=== PATIENT | female | born 1995 | race Caucasian/White ===

== ENCOUNTER 2020-03-19 18:19 | Emergency (ER) | payer SELFPAY ==
[2020-03-19 18:29] VITALS: BP 143/83; PULSE 88; RESP 16; TEMP 37.1; O2SAT 98; BMI 47.2
[2020-03-19 19:58] LABS: Basophils # 0.1 10^3/uL (0.0-0.1); Basophils % 0.4 %; Eosinophils # 0.2 10^3/uL (0.0-0.8); Eosinophils % 1.3 %; Hematocrit 41.7 % (37.0-47.0); Hemoglobin 12.7 g/dL (11.5-15.3); Lymphocytes # 3.1 10^3/uL (0.8-4.8); Lymphocytes % 24.6 %; Mean Corpuscular HGB Conc 30.5 g/dL (30.0-36.0); Mean Corpuscular Volume 81.9 fL (81-99); Mean Platelet Volume 9.7 fL (7.4-10.4); Monocytes # 0.9 10^3/uL (0.2-0.9); Monocytes % 6.8 %; Neutrophils # 8.46 10^3/uL (1.8-7.7); Neutrophils % 66.5 %; Nucleated Red Blood Cells % 0 %; Platelet Count 350 10^3/cmm (130-400); Red Blood Count 5.09 10^6/uL (4.1-5.3); Red Cell Distribution Width 15.2 % (12.1-15.1); White Blood Count 12.7 10^3/uL (4.0-10.0)
[2020-03-19 20:16] LABS: Alanine Aminotransferase 21 U/L (0-33); Albumin Level 4.3 g/dL (3.5-5.2); Alkaline Phosphatase 72 IU/L (35-105); Anion Gap 13.9 (5-19); Aspartate Amino Transferase 16 U/L (0-32); Blood Urea Nitrogen 16 mg/dL (6-20); Calcium 9.3 mg/dL (8.5-10.5); Carbon Dioxide 25 mmol/L (22-29); Chloride 103 mmol/L (98-107); Globulin 2.9 g/dL (1.3-4.6); Glomerular Filtration Rate 89.7 mL/min (90-130); Glucose 86 mg/dL (65-115); Osmolality Calculated 282 mOsm/kg (285-295); Potassium 3.9 mmol/L (3.5-5.1); Sodium 138 mmol/L (136-145); Total Bilirubin 0.2 mg/dL (0.15-1.2); Total Protein 7.2 g/dL (6.6-8.7)
--- NOTE | 2020-03-19 20:39 | US_ITS ---
WS: [id number] ULTRASOUND ABDOMEN LIMITED CLINICAL INFORMATION: Abdominal Pain COMPARISON: None. FINDINGS: Liver Size: Enlarged Craniocaudal length: 16.1 cm. Echogenicity: Coarse fatty Surface nodularity: None. Mass (size and location): None. Bile ducts Intrahepatic ducts: Normal. Common bile duct diameter: 0.5 cm. Gallbladder Normal. Gallstones: None. Gallbladder sludge: None. Gallbladder wall thickening: None. Pericholecystic fluid: None. Sonographic Cline sign: Absent. Pancreas Normal as visualized. Right kidney: Normal. Hydronephrosis: None. Size: 10.5 cm x 4.0 cm x 3.6 cm. Abdominal aorta and IVC Visualized portions are normal. Ascites: None. US/US gall bladder [id number] IMPRESSION: 1. Hepatomegaly with diffuse fatty infiltration. 2. Abdomen otherwise normal.
[2020-03-19 20:41] LABS: HCG, Serum Qual Negative (Negative)
[2020-03-19 21:28] LABS: H. Pylori IgG Antibody Negative (Negative)
--- NOTE | 2020-03-19 21:28 | ED_ITS ---
HPI - Abdominal Pain General: Chief Complaint: Abdominal Pain Stated Complaint: abd pain Time Seen by Provider: 03/19/20 20:20 Source: patient Mode of arrival: ambulatory Limitations: no limitations History of Present Illness: HPI narrative: Netta is a very nice 24-year-old female who comes in complaining of lower abdominal pain for the past 2 months. She denies any vaginal bleeding or discharge, but she does states she is late 2 months for her period. She has had 2- home test but is uncertain why she has not had a menstrual cycle. She denies any aggravating or alleviating factors. Denies having anything similar in the past. She states the pain is constant from the time she wakes up until the time she goes to bed. She has not had this evaluated as an outpatient and she only comes in tonight secondary to the insistence of her grandmother. She denies any nausea or vomiting, diarrhea or constipation, dysuria but does state that she has had urinary frequency and urgency. She is unaware of any hematuria. Patient denies any other complaints or concerns. Associated Symptoms: Denies chills, coffee ground emesis, constipation, GI cramping, diarrhea, dysuria, fever(s), heartburn, hematochezia, hematuria, hematemesis, melena, nausea, syncope and vomiting Review of Systems Const: Denies: fever(s), chills, body aches, fatigue, malaise or diaphoresis Eyes: Denies: change in vision, blurry vision, blind spots, photophobia, eye discharge or eye redness ENMT: Denies: throat pain, odynophagia, hoarseness, swelling of lips/tongue, oral sores, ear or mastoid pain, ear discharge, change in hearing or nasal discharge Card: Denies: chest pain, palpitations, irregular heart rhythm, edema, lightheadedness, syncope, pre-syncope, dyspnea on exertion or orthopnea Resp: Denies: dyspnea, productive cough, non-productive cough, wheezing, hemoptysis or chest congestion GI: Reports: abdominal pain; Denies: nausea, vomiting, hematemesis, coffee ground emesis, heartburn, diarrhea, constipation, GI cramping, hematochezia or melena : Denies: flank pain, dysuria, urinary frequency, urinary urgency or hematuria Musc: Denies: neck pain, back pain, extremity pain, extremity swelling, joint pain, joint swelling, joint redness, joint warmth or joint stiffness Skin/Breast: Denies: rash, pruritus, erythema, skin tenderness or jaundice Neuro: Denies: headache(s), numbness in extremities, weakness in extremities, sensory changes, lack of coordination, difficulty walking, dizziness, vertigo, confusion, Slurred speech present or seizure-like activity Issa/Lymph: Denies: easy bruising, easy bleeding, petechiae, purpura or en larged lymph nodes All/Imm: Denies: urticaria, throat swelling, tongue swelling, facial swelling or acute wheezing PFSH ED PFSH: Medical History No pertinent past medical history Surgical History No pertinent past surgical history Social History Smoking and tobacco status: never smoked Alcohol intake: never Substance/Drug Use: never Physical Exam Const: COMMON NORMALS: no acute distress, patient oriented x3, no limitations, healthy appearing and well nourished GENERAL APPEARANCE: cooperative, well kempt and well developed HENMT: COMMON NORMALS: normocephalic, atraumatic, external ears normal, EAC's normal and Normal external nose present HEAD & SCALP: normal to inspection, normocephalic and atraumatic FACE & SINUS: normal facial exam and face symmetric NOSE: Normal external nose present and Normal nares present EXTERNAL EAR: Yes external ears normal EXTERNAL AUDITORY CANAL: EAC's normal MOUTH: Normal oral and palatal mucosa present, lip normal and tongue normal Eye: COMMON NORMALS: Equal, round and reactive pupils present and conjunctivae normal GENERAL EYE: appearance normal, both eyes and all related structures ALIGNMENT: Yes alignment normal PERIORBITAL: periorbital findings normal EYELID: eyelids normal CONJUNCTIVA: Yes conjunctivae normal SCLERA: sclerae normal PUPIL: Yes Equal, round and reactive pupils present Neck/C-Spine: COMMON NORMALS: full ROM, no lymphadenopathy, supple, no meningeal signs and no JVD GENERAL: Yes normal visual inspection and Yes trachea midline Chest: COMMONS NORMALS: normal inspection of the chest and normal palpation of entire chest wall Resp: COMMON NORMALS: normal respiratory effort, No retractions and No use of accessory muscles EFFORT & INSPECTION: Yes able to speak in complete sentences and Yes symmetric chest movement AUSCULTATION: no crackles, no rales, no rhonchi and no wheezes Cardio: COMMON NORMALS: no JVD, regular rate, regular rhythm, S1 normal heart sound present and S2 normal heart sound present RATE: regular rate RHYTHM: regular rhythm HEART SOUNDS: S1 normal heart sound present, S2 normal heart sound present, no click, no gallops, no murmurs, no rubs and abnormal split S2 GI: COMMON NORMALS: Soft to palpation and No hepatosplenomegaly present PALPATION: Yes Soft to palpation, Yes Tenderness to palpation present (GI) Details: RUQ, No Guarding due to palpation present (GI), No Rigid due to palpation, Yes No hepatosplenomegaly present, No Hernia present, No Palpable mass present and No Pulsatile mass present : COMMON NORMALS: Yes no CVA tenderness BLADDER/KIDNEY EXAM: Yes no CVA tenderness EXTERNAL FEMALE EXAM: No Hernia present Back/Pelvis: COMMON NORMALS: no CVA tenderness, thoracic and lumbar spine normal to inspection, no thoracic nor lumbar tenderness and thoraco-lumbar ROM normal Extremity: COMMON NORMALS: normal to inspection, full ROM, capillary refill normal, no joint enlargement, no clubbing, cyanosis or edema and no calf tenderness Neuro: COMMON NORMALS: patient oriented x3, CN's II-XII intact bilaterally, moves all extremities, no focal motor deficits and no sensory deficits noted MENINGEAL SIGNS: Yes no meningeal signs SPEECH: speech normal Psych: COMMON NORMALS: mental status grossly normal, Normal thought process present, cooperative, normal affect, speech normal and activity/motor behavior normal APPEARANCE: Yes well kempt SPEECH: Yes normal speech THOUGHT PROCESS: Normal thought process present Skin: COMMON NORMALS: no rashes or lesions noted, turgor normal, no jaundice, no petechiae and no mottling GENERAL SKIN EXAM: no rashes or lesions noted an d turgor normal Course Vital Signs: Vital signs: Vital Signs Temperature 98.8 F 03/19/20 18:29 Pulse Rate 88 03/19/20 18:29 Respiratory Rate 16 03/19/20 23:20 Blood Pressure 167/120 03/19/20 23:24 Pulse Oximetry 97 03/19/20 21:29 MDM - Abdominal Pain MDM Narrative: Medical decision making narrative: Netta is a nice 24-year-old female who comes in complaining of 2 months of constant lower abdominal pain. What prompted her to come in tonight was insistent by her family. She appears that she has a mild UTI but I see no sign of acute peritonitis on exam. Her abdominal ultrasound is unremarkable. I recommended a CT scan to evaluate further including to rule out appendicitis although I did not feel this was likely based upon exam and history but despite this I recommended this to the patient and she refuses. She does agree to follow-up Dr. Mcneal as an outpatient for possible colonoscopy and EGD. She understood the risks of appendicitis and agreed to return if her symptoms worsened. Lab Data: Attestation: I reviewed the patient's lab results. Labs: Lab Results 03/19/20 03/19/20 03/19/20 Range/Units 19:44 19:44 19:44 WBC 12.7 H (4.0-10.0) 10^3/ uL RBC 5.09 (4.1-5.3) 10^6/u L Hgb 12.7 (11.5-15.3) g/dL Hct 41.7 (37.0-47.0) % MCV 81.9 (81-99) fL MCH 25.0 L (28.0-34.0) pg MCHC 30.5 (30.0-36.0) g/dL RDW 15.2 H (12.1-15.1) % Plt Count 350 (130-400) 10^3/c mm MPV 9.7 (7.4-10.4) fL Neut % (Auto) 66.5 % Lymph % (Auto) 24.6 % [place] % (Auto) 6.8 % Eos % (Auto) 1.3 % Baso % (Auto) 0.4 % Neut # (Auto) 8.46 H (1.8-7.7) 10^3/u L Lymph # (Auto) 3.1 (0.8-4.8) 10^3/u L [place] # (Auto) 0.9 (0.2-0.9) 10^3/u L Eos # (Auto) 0.2 (0.0-0.8) 10^3/u L Baso # (Auto) 0.1 (0.0-0.1) 10^3/u L Nucleated RBC % (a uto) 0 % Nucleated RBCs # 0.0 /100WBC Sodium 138 (136-145) mmol/L Potassium 3.9 (3.5-5.1) mmol/L Chloride 103 (98-107) mmol/L Carbon Dioxide 25 (22-29) mmol/L Anion Gap 13.9 (5-19) BUN 16 (6-20) mg/dL Creatinine 0.8 (0.5-0.9) mg/dL GFR Calculation 89.7 L (90-130) mL/min Glucose 86 (65-115) mg/dL Calculated Osmolal ity 282 L (285-295) mOsm/k g Calcium 9.3 (8.5-10.5) mg/dL Total Bilirubin 0.2 (0.15-1.2) mg/dL AST 16 (0-32) U/L ALT 21 (0-33) U/L Alkaline Phosphata se 72 (35-105) IU/L Total Protein 7.2 (6.6-8.7) g/dL Albumin 4.3 (3.5-5.2) g/dL Globulin 2.9 (1.3-4.6) g/dL HCG, Qual Negative (Negative) Urine Color (Yellow) Urine Appearance (CLEAR) Urine pH (5-7) Ur Specific Gravit y (1.005-1.030) Urine Protein (Negative) Urine Glucose (UA) (Normal) Urine Ketones (Negative) Urine Blood (Negative) Urine Nitrate (Negative) Urine Bilirubin (NEGATIVE) Urine Urobilinogen (Negative) mg/dL Ur Leukocyte Natalee ase (Negative) Urine RBC (0-2) /hpf Urine WBC (0-5) /hpf Ur Squamous Epith Cells (0-5) Amorphous Sediment Urine Bacteria (NONE) H. pylori IgG Anti body (Negative) 03/19/20 03/19/20 Range/Units 19:44 21:20 WBC (4.0-10.0) 10^3/ uL RBC (4.1-5.3) 10^6/u L Hgb (11.5-15.3) g/dL Hct (37.0-47.0) % MCV (81-99) fL MCH (28.0-34.0) pg MCHC (30.0-36.0) g/dL RDW (12.1-15.1) % Plt Count (130-400) 10^3/c mm MPV (7.4-10.4) fL Neut % (Auto) % Lymph % (Auto) % [place] % (Auto) % Eos % (Auto) % Baso % (Auto) % Neut # (Auto) (1.8-7.7) 10^3/u L Lymph # (Auto) (0.8-4.8) 10^3/u L [place] # (Auto) (0.2-0.9) 10^3/u L Eos # (Auto) (0.0-0.8) 10^3/u L Baso # (Auto) (0.0-0.1) 10^3/u L Nucleated RBC % (a uto) % Nucleated RBCs # /100WBC Sodium (136-145) mmol/L Potassium (3.5-5.1) mmol/L Chloride (98-107) mmol/L Carbon Dioxide (22-29) mmol/L Anion Gap (5-19) BUN (6-20) mg/dL Creatinine (0.5-0.9) mg/dL GFR Calculation (90-130) mL/min Glucose (65-115) mg/dL Calculated Osmolal ity (285-295) mOsm/k g Calcium (8.5-10.5) mg/dL Total Bilirubin (0.15-1.2) mg/dL AST (0-32) U/L ALT (0-33) U/L Alkaline Phosphata se (35-105) IU/L Total Protein (6.6-8.7) g/dL Albumin (3.5-5.2) g/dL Globulin (1.3-4.6) g/dL HCG, Qual (Negative) Urine Color Yellow (Yellow) Urine Appearance Hazy A (CLEAR) Urine pH 5 (5-7) Ur Specific Gravit y 1.025 (1.005-1.030) Urine Protein Neg (Negative) Urine Glucose (UA) Norm (Normal) Urine Ketones Negative (Negative) Urine Blood 2+ H (Negative) Urine Nitrate Negative (Negative) Urine Bilirubin Neg (NEGATIVE) Urine Urobilinogen Norm (Negative) mg/dL Ur Leukocyte Natalee ase 1+ H (Negative) Urine RBC 0-4 H (0-2) /hpf Urine WBC 0-4 H (0-5) /hpf Ur Squamous Epith Cells 0-4 H (0-5) Amorphous Sediment Not Reportable Urine Bacteria Trace (NONE) H. pylori IgG Anti body Negative (Negative) Imaging Data ^: US: My impression: Ultrasound abdomen, technologist interpretation -no acute findings. See formal report. Discharge Plan Discharge Patient Disposition: Home, Self-Care Clinical Impression: Abdominal pain Qualifiers: Abdominal location: generalized Qualified Code(s): R10.84 - Generalized abdominal pain UTI (urinary tract infection) Qualifiers: Urinary tract infection type: acute cystitis Hematuria presence: without hematuria Qualified Code(s): N30.00 - Acute cystitis without hematuria Condition: Stable Prescriptions: New Pyridium 200 mg tablet 200 mg PO TID PRN (Reason: pain) Qty: 7 RF: 0 cefdinir 300 mg capsule 300 mg PO Q12H 10 Days Qty: 20 RF: 0 Discharge Orders: Discharge Order (Routine); Ordered 03/19/20 Ordered By: Velvet Miller Referrals: Tung De León MD [Primary Care Provider] - Bob Mcneal MD [Physician] - Discharge Diet: Advance as tolerated Discharge Activity: Increase activity as tolerated Patient Instructions: Cholecystitis (ED), Abdominal Pain (ED) Activity Restrictions/Additional Instructions: Please return to the ER immediately for any of the signs or symptoms listed on your discharge instruction sheets, worsening/changing of your symptoms, you are not getting better as quickly as expected, or for ANY other cause or concerns. I have recommended and offered to perform a CT scan to further evaluate your abdominal pain including to rule out appendicitis but you have refused. If you change your mind or your symptoms change/worsen in any way please return to the ER immediately for recheck. 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
[2020-03-19 21:29] VITALS: BP 131/107; RESP 18; O2SAT 97
[2020-03-19 22:04] LABS: Add Urine Microscopic? YES; Bilirubin Urine Neg (NEGATIVE); Blood Urine 2+ (Negative); Glucose Urine UA Norm (Normal); Ketones Urine Negative (Negative); Leukocyte Esterase Urine 1+ (Negative); Nitrate Urine Negative (Negative); Protein Urine Neg (Negative); Specific Gravity, Urine 1.025 (1.005-1.030); Urine Appearance Hazy (CLEAR); Urine Color Yellow (Yellow); Urobilinogen Urine Norm (Negative); pH Urine 5 (5-7)
[2020-03-19 22:06] LABS: Add Urine Culture? No; Bacteria Urine TRACE; RBC Urine 0-4 /hpf (0-2); Squamous Epithelial Cell Urine 0-4 (0-5); WBC Urine 0-4 /hpf (0-5)
[2020-03-19 23:20] VITALS: RESP 16
[2020-03-19 23:24] VITALS: BP 167/120
== END 2020-03-19 23:29 | disposition home or self-care (01) ==
PROVIDERS: Emergency Medicine; Emergency Provider Emergency Medicine; PCP Obstetrics & Gynecology
DX: N30.00 Acute cystitis without hematuria (principal)
CPT/HCPCS: 12345; 36415; 76705; 80053; 81001; 81003; 84703; 85025; 86677; 99282; 99283

== ENCOUNTER 2021-02-16 18:08 | Emergency (ER) | payer SELFPAY ==
[2021-02-16 18:44] VITALS: BP 137/83; PULSE 73; RESP 18; TEMP 37; O2SAT 96; BMI 50.8
--- NOTE | 2021-02-16 19:07 | W.ED.URI ---
HPI - URI/Sore Throat General: Chief Complaint: Upper Respiratory Infection Stated Complaint: congestion, feels like throat swelling Time Seen by Provider: 02/16/21 19:07 History of Present Illness: HPI Narrative: 25-year-old female comes in today for complaints of cough and congestion for about 1 week now. Patient reports last 2 days has been worse. Patient reports though she has not had a fever for about 2 days. Patient appears mildly unwell but not toxic. Respirations are even. Patient appears with no pain. Review of Systems General: Reports: 10 or more systems reviewed and unremarkable except in HPI and below Resp: Reports: non-productive cough and wheezing [facility] ED PFSH: Medical History (Updated 02/16/21 @ 19:15 by ELI Hernandez) No pertinent past medical history Surgical History No pertinent past surgical history Social History Smoking and tobacco status: never smoked Alcohol intake: never Female Reproductive History: Date of last menstrual period: 02/09/21 Physical Exam Const: COMMON NORMALS: no acute distress and patient oriented x3 GENERAL APPEARANCE: cooperative HENMT: COMMON NORMALS: normocephalic and TM's normal bilaterally HEAD & SCALP: normal to inspection and normocephalic NOSE: Nasal discharge present TYMPANIC MEMBRANE: TM's normal bilaterally and other (Scarring to both tympanic membranes) MOUTH: Normal oral and palatal mucosa present THROAT: posterior oropharynx normal Eye: GENERAL EYE: appearance normal, both eyes and all related structures Neck/C-Spine: COMMON NORMALS: full ROM Lymph: LYMPHATIC: no lymphadenopathy noted Chest: COMMONS NORMALS: normal inspection of the chest Resp: COMMON NORMALS: normal respiratory effort EFFORT & INSPECTION: Yes able to speak in complete sentences AUSCULTATION: wheezes (Mild) Cardio: COMMON NORMALS: regular rate and regular rhythm RATE: regular rate RHYTHM: regular rhythm GI: COMMON NORMALS: non-tender : COMMON NORMALS: Yes no CVA tenderness BLADDER/KIDNEY EXAM: Yes no CVA tenderness Back/Pelvis: COMMON NORMALS: no CVA tenderness and thoracic and lumbar spine normal to inspection Extremity: COMMON NORMALS: normal to inspection Neuro: COMMON NORMALS: patient oriented x3 and moves all extremities Psych: COMMON NORMALS: mental status grossly normal and cooperative Skin: COMMON NORMALS: no rashes or lesions noted GENERAL SKIN EXAM: no rashes or lesions noted Course Vital Signs: Vital signs: Vital Signs Temperature 98.6 F 02/16/21 18:44 Pulse Rate 73 02/16/21 18:44 Respiratory Rate 18 02/16/21 18:44 Blood Pressure 137/83 02/16/21 18:44 Pulse Oximetry 96 02/16/21 18:44 MDM - URI/Sore Throat MDM Narrative: Medical decision making narrative: Patient comes in today for complaints of cough and congestion for 7 days. Patient reports worsening symptoms over the last 2 days. Exam notes some wheezing in lung eduardo. Posterior pharynx has some drainage. Bilateral nares has congestion and drainage. Differential diagnosis includes not limited to acute bronchitis, upper respiratory infection, viral syndrome. Reviewed exam with patient recommended treat for bronchitis. We will give her a burst of dexamethasone 6 mg 1 tablet twice a day for 4 doses. Albuterol as needed for cough, wheezing, shortness of breath. And doxycycline 100 mg twice a day for 7 days. Patient reports understanding of care plan and need for follow-up or return to the ER. Discharge Plan Discharge Patient Disposition: Home Clinical Impression: Bronchitis Condition: Stable Prescriptions: New dexamethasone 6 mg tablet 6 mg PO BID Qty: 4 RF: 0 albuterol sulfate 90 mcg/actuation HFA aerosol inhaler 2 puff inhalation Q4H PRN (Reason: shortness of breath or wheezing or cough) Qty: 8.5 RF: 0 doxycycline monohydrate 100 mg capsule 100 mg PO BID 7 Days Qty: 14 RF: 0 No Action Pyridium 200 mg tablet 200 mg PO TID PRN (Reason: pain) Qty: 7 RF: 0 Discharge Orders: Discharge ED (Routine); Ordered 02/16/21 Ordered By: Leo Meyer Referrals: Tung De León MD [Primary Care Provider] - Discharge Diet: Usual diet Discharge Activity: Increase activity as tolerated Patient Instructions: Acute Bronchitis (ED), Opioid Safety Activity Restrictions/Additional Instructions: Take medication as directed. Drink plenty of fluids. Take antibiotic twice a day for next 7 days. Use albuterol 2 puffs every 4 hours as needed at least 4 times a day for the next 3 days. Use acetaminophen and ibuprofen for pain. Follow-up with primary care for recheck. Return to the ER for worsening symptoms or new concerns. Coding Level of Care Code ED Corrections Nurse for Ashley Mooney
== END 2021-02-16 19:32 | disposition home or self-care (01) ==
PROVIDERS: Emergency Provider Nurse Practitioner Family; PCP Obstetrics & Gynecology
DX: J40 Bronchitis, not specified as acute or chronic (principal)
CPT/HCPCS: 99281

== ENCOUNTER 2021-07-28 11:26 | Emergency (ER) | payer MEDICAID, SELFPAY ==
[2021-07-28 11:39] VITALS: BP 136/85; PULSE 81; RESP 16; TEMP 36.6; O2SAT 96; BMI 47.2
[2021-07-28 11:46] VITALS: BP 140/86; PULSE 85; RESP 18; TEMP 37.2; O2SAT 97
--- NOTE | 2021-07-28 12:11 | W.ED.URI ---
HPI - URI/Sore Throat General: Chief Complaint: Upper Respiratory Infection Stated Complaint: CONGESTION, SORE THROAT, N/V Time Seen by Provider: 07/28/21 11:57 Source: patient Mode of arrival: ambulatory Limitations: no limitations History of Present Illness: HPI Narrative: Patient is a 25-year-old female who presents to ED today with complaints of a sore throat, rhinorrhea, nasal congestion with yellow phelgm, ear fullness/pain, and cough with post-tussive vomiting. Patient has had symptoms for approximately 2 days. She has not been running fevers. Patient states her most bothersome symptom seems to be her sore throat. She is able to control her own secretions. No difficulty breathing. Patient states she is able to eat and drink. She states sometimes after eating she will begin coughing and then have an episode of posttussive vomiting. No sick contacts. Patient has received one dose of the COVID vaccination approximately a week ago. Associated symptoms: Reports ear or mastoid pain, nasal congestion and sinus pain; Deny abdominal pain, chills, chest pain, diarrhea, epistaxis, fever(s), headache(s), nausea or vomiting Review of Systems Const: Denies: fever(s), chills, body aches, fatigue or malaise Eyes: Denies: change in vision, blurry vision, photophobia, floaters or seeing flashes ENMT: Reports: throat pain, odynophagia, ear or mastoid pain, nasal discharge, nasal congestion and sinus pain; Denies: mouth pain, oral sores, dental pain, ear discharge, change in hearing, tinnitus, disequilibrium or epistaxis Card: Denies: chest pain, palpitations, swelling of feet/ankles or orthopnea Resp: Reports: productive cough, change in phlegm color and chest congestion; Denies: dyspnea, wheezing or hemoptysis GI: Denies: abdominal pain, nausea, vomiting or diarrhea Musc: Denies: neck pain, back pain, extremity pain or joint pain Skin/Breast: Denies: rash Neuro: Denies: headache(s) PFS ED PFSH: Medical History (Updated 07/28/21 @ 13:47 by LAMBERT Mello) No pertinent past medical history Psychiatric care Surgical History No pertinent past surgical history Social History (Updated 06/22/21 @ 13:37 by Ramiro Ojeda LPN) Smoking and tobacco status: never smoked Second hand smoke exposure: No Alcohol intake: never Female Reproductive History: Date of last menstrual period: 02/09/21 Physical Exam Const: COMMON NORMALS: no acute distress, patient oriented x3, no limitations and alert GENERAL APPEARANCE: cooperative NUTRITIONAL APPEARANCE: obese morbidly obese ORIENTATION/CONSCIOUSNESS: Yes awake, Yes oriented to person, Yes oriented to place and Yes oriented to time HENMT: COMMON NORMALS: normocephalic, atraumatic, hearing grossly normal bilaterally, external ears normal, EAC's normal, TM's normal bilaterally, Normal external nose present, Normal nasal mucous membranes and turbinates present, moist oral mucous membranes, oropharynx normal and gingiva normal HEAD & SCALP: normal to inspection, normocephalic and atraumatic FACE & SINUS: sinus tenderness maxillary NOSE: Normal external nose present and Normal nasal mucous membranes and turbinates present EXTERNAL EAR: Yes external ears normal EXTERNAL AUDITORY CANAL: EAC's normal TYMPANIC MEMBRANE: TM's normal bilaterally MOUTH: Normal oral and palatal mucosa present, lip normal and tongue normal THROAT: posterior oropharynx normal, tonsils normal and uvula midline Eye: GENERAL EYE: appearance normal, both eyes and all related structures Neck/C-Spine: COMMON NORMALS: full ROM, no lymphadenopathy and no meningeal signs Resp: COMMON NORMALS: normal respiratory effort and clear to auscultation bilaterally AUSCULTATION: clear to auscultation bilaterally Cardio: COMMON NORMALS: regular rate and regular rhythm RATE: regular rate RHYTHM: regular rhythm Neuro: COMMON NORMALS: patient oriented x3 SENSORIUM/ORIENTATION: Yes alert, Yes oriented to person, Yes oriented to place and Yes oriented to time MENINGEAL SIGNS: Yes no meningeal signs Skin: COMMON NORMALS: no rashes or lesions noted GENERAL SKIN EXAM: no rashes or lesions noted Course Vital Signs: Vital signs: Vital Signs Temperature 98.6 F 07/28/21 13:59 Pulse Rate 72 07/28/21 13:59 Respiratory Rate 17 07/28/21 13:59 Blood Pressure 140/86 07/28/21 13:59 Pulse Oximetry 98 07/28/21 13:59 MDM - URI/Sore Throat MDM Narrative: Medical decision making narrative: Patient clinically appears in no acute distress. Her vital signs are perfect. Rapid COVID negative. CXR normal. At this time symptoms are most consistent with viral URI. Spoke about conservative and symptomatic treatment. She states her most bothersome symptom seems to be her sore throat. Will give viscous lidocaine that patient may gargle with to help relieve some discomfort. Return to ED precautions given. Lab Data: Labs: Lab Results 07/28/21 12:22 SARS-CoV-2 Ag (Rap id) Negative (Negative) Imaging Data^: CXR: Radiologist's impression: [address] [id number] ReportSigned Patient: Netta Alberts #: [id number]: 1995Acct#:[id number]/Sex: FADM Date: 07/28/21Loc: ERRoom/Bed:Attending Dr: Ordering Provider/Ordering MD: Nava Min Date of Service: 07/28/21 Procedure(s): XR chest 1V portable [id number] Accession Number(s): [id number] Report Number: [id number] PROCEDURE INFORMATION: Exam: XR Chest Exam date and time: 07/28/2021 12:11 PM Age: 25 years old Clinical indication: Cough and shortness of breath; Patient HX: Coughing and SOB 3 days; Additional info: Cough, congestion TECHNIQUE: Imaging protocol: XR of the chest. Views: 1 view. COMPARISON: No relevant prior studies available. FINDINGS: Lungs: Unremarkable. No consolidation. Pleural spaces: Unremarkable. No pleural effusion. No pneumothorax. Heart/Mediastinum: Unremarkable. No cardiomegaly. Bones/joints: Unremarkable. XR/XR chest 1V portable [id number] IMPRESSION: No acute findings. Radiation Dose CTDIVOL = (mGy): DLP = (mGy-cm) Dictated By:Arturo Wood By:Arturo Wood Date/Time:07/28/21 [id number]/ 1211 Discharge Plan Discharge Patient Disposition: Home Clinical Impression: Upper respiratory infection Qualifiers: URI type: unspecified viral URI Qualified Code(s): J06.9 - Acute upper respiratory infection, unspecified Condition: Stable Prescriptions: New Lidocaine Viscous 2 % solution 15 ml MUCOUS MEM QID Qty: 100 RF: 0 No Action citalopram [Celexa] 20 mg tablet 20 mg PO DAILY Qty: 30 RF: 2 trazodone 50 mg tablet 100 mg PO .HS PRN (Reason: insomnia) Qty: 60 RF: 2 albuterol sulfate 90 mcg/actuation HFA aerosol inhaler 2 puff inhalation Q4H PRN (Reason: shortness of breath or wheezing or cough) Qty: 8.5 RF: 0 Discharge Orders: Discharge ED (Routine); Ordered 07/28/21 Ordered By: Nava Min Patient Instructions: Upper Respiratory Infection (ED), Upper Respiratory Infection (DC) Activity Restrictions/Additional Instructions: As we discussed you may use the viscous lidocaine to help with throat discomfort. You need to return to the ED if you are unable to control your own saliva, inability to eat/drink, or trouble breathing. Please follow up with primary care in 3-5 days if symptoms are worsening. Coding Level of Care Code ED Patient Admitting Representative for Ashley Mooney
[2021-07-28 13:42] LABS: SARS Covid-2 Antigen Negative (Negative)
[2021-07-28 13:53] VITALS: BP 140/86; PULSE 72; RESP 17; TEMP 37; O2SAT 98
[2021-07-28 13:59] VITALS: BP 140/86; PULSE 72; RESP 17; TEMP 37; O2SAT 98
== END 2021-07-28 14:00 | disposition home or self-care (01) ==
PROVIDERS: Emergency Provider Physician Assistant; PCP Obstetrics & Gynecology
DX: J06.9 Acute upper respiratory infection, unspecified (principal)
CPT/HCPCS: 71045; 87426; 99283

== ENCOUNTER → 2021-07-31 11:53 | Outpatient (BNVA) | payer MEDICAID, SELFPAY | PROVIDERS: PCP Obstetrics & Gynecology; Visit Provider Registered Nurse Neonatal Intensive Care | DX: J02.9 Acute pharyngitis, unspecified (principal) | CPT/HCPCS: 87880 ==

== ENCOUNTER → 2021-08-18 12:44 | Outpatient (BNVA) | payer MEDICAID, SELFPAY | PROVIDERS: PCP Obstetrics & Gynecology; Visit Provider Nurse Practitioner Family | DX: R68.89 Other general symptoms and signs (principal); Z20.822 Contact with and (suspected) exposure to COVID-19 | CPT/HCPCS: 87400; 87635 ==

== ENCOUNTER 2021-09-26 13:12 | Emergency (ER) | payer OTHER, MEDICAID, SELFPAY ==
--- NOTE | 2021-09-26 13:55 | XRR_ITS ---
PROCEDURE INFORMATION: Exam: XR Chest Exam date and time: 09/26/2021 1:55 PM Age: 25 years old Clinical indication: Pain; Chest pressure; Patient HX: C/O weakness, chest discomfort; Additional info: Chest pain TECHNIQUE: Imaging protocol: XR of the chest. Views: 1 view. COMPARISON: CR XR chest 1V portable [id number] 07/28/2021 12:20 PM FINDINGS: Lungs: Right hilar to lower lobe atelectasis versus infiltrate. Pleural spaces: Unremarkable. No pleural effusion. No pneumothorax. Heart/Mediastinum: Cardiomegaly. Bones/joints: Unremarkable. XR/XR chest 1V portable [id number] IMPRESSION: 1. Cardiomegaly. 2. Right hilar to lower lobe atelectasis versus infiltrate.
[2021-09-26 14:53] VITALS: BP 147/89; PULSE 67; RESP 16; TEMP 36.9; O2SAT 98; BMI 47.2
[2021-09-26 17:36] LABS: HCG Qualitative Urine. Negative (Negative)
== END 2021-09-26 19:11 | disposition left against medical advice (07) ==
PROVIDERS: Emergency Medicine; Emergency Provider Family Medicine; PCP Obstetrics & Gynecology
DX: Z53.21 Procedure and treatment not carried out due to patient leaving prior to being seen by health care provider (principal)
CPT/HCPCS: 71045; 81025

== ENCOUNTER 2022-01-12 13:37 | Emergency (ER) | payer OTHER, MEDICAID, SELFPAY ==
[2022-01-12 13:46] VITALS: BP 147/88; PULSE 96; RESP 18; TEMP 36.9; O2SAT 99
--- NOTE | 2022-01-12 15:01 | XR_ITS ---
WS: [id number] LUMBAR SPINE: 3 VIEWS TECHNIQUE: AP, lateral and L5-S1 spot. HISTORY: back pain/injury COMPARISON: None available. Mild straightening of the normal lumbar lordosis. Posterior alignment is normal. Pedicles are all tiera ntified. No fracture. No loss of disc space or vertebral body height. SI joints are symmetric bilaterally. No soft tissue abnormalities. XR/XR lumbar spine 2-3V* [id number] IMPRESSION: Mild straightening of the normal lumbar lordosis. This may be positional or due to muscle spasm. Otherwise negative.
--- NOTE | 2022-01-12 15:02 | W.ED.BACK ---
HPI - Back Pain/Injury General: Chief Complaint: Back Pain/Injury Stated Complaint: Sever Back Pain Time Seen by Provider: 01/12/22 14:49 Source: patient Mode of arrival: ambulatory Limitations: no limitations History of Present Illness: Patient is a nice 26-year-old female presents to ED today with a complaint of lower back pain. Patient tells me approximately 2 days ago while rolling over in bed she felt like she strained something in her lower back. Patient states she has been having lower back discomfort since. She denies any radicular symptoms and states the pain does not seem to move down into her lower extremities. She is not having any paresthesia-like sensations. Patient is still able to ambulate. She denies urinary symptoms. MD elicited complaint: back pain Associated symptoms: Deny abdominal pain, chills, difficulty walking, dysuria, fatigue, fever(s) or hematuria Review of Systems Const: Denies: fever(s), chills, body aches, fatigue or malaise Card: Denies: chest pain Resp: Denies: dyspnea GI: Denies: abdominal pain : Denies: flank pain, dysuria or hematuria Musc: Reports: back pain; Denies: neck pain, extremity pain or joint pain Skin/Breast: Denies: rash Neuro: Denies: headache(s), numbness in extremities, weakness in extremities, sensory changes or difficulty walking [facility] ED PFSH: Medical History No pertinent past medical history Psychiatric care Psychiatric care Viral gastroenteritis Surgical History No pertinent past surgical history Social History Smoking and tobacco status: never smoked Second hand smoke exposure: No Alcohol intake: never Female Reproductive History: Date of last menstrual period: 02/09/21 Physical Exam Const: COMMON NORMALS: no acute distress, patient oriented x3, no limitations and alert GENERAL APPEARANCE: cooperative NUTRITIONAL APPEARANCE: obese morbidly obese ORIENTATION/CONSCIOUSNESS: Yes awake, Yes oriented to person, Yes oriented to place and Yes oriented to time HENMT: COMMON NORMALS: normocephalic and atraumatic HEAD & SCALP: normocephalic and atraumatic Resp: COMMON NORMALS: normal respiratory effort Cardio: COMMON NORMALS: regular rate and regular rhythm RATE: regular rate RHYTHM: regular rhythm GI: COMMON NORMALS: Normal to inspection, nondistended, normoactive bowel sounds present, Soft to palpation and non-tender PALPATION: Yes Soft to palpation : COMMON NORMALS: Yes no CVA tenderness BLADDER/KIDNEY EXAM: Yes no CVA tenderness Back/Pelvis: COMMON NORMALS: no CVA tenderness THORACIC SPINE/UPPER BACK: Yes normal to inspection, Yes thoracic ROM normal, No thoracic spinal tenderness, No paraspinal muscle tenderness and No paraspinal muscle spasm LUMBAR SPINE/LOWER BACK: Yes ROM limited, Yes pain with ROM, Yes lumbar spinal tenderness, Yes paraspinal muscle tenderness (across bilateral lower back) Lumbar paraspinal muscle tenderness: bilateral, No paraspinal muscle spasm, No mass present and Yes straight leg raise negative bilaterally PELVIS: Yes buttocks normal SACROILIAC JOINTS: Yes SI joints normal SACRUM: no tenderness COCCYX: no tenderness Extremity: COMMON NORMALS: normal to inspection, full ROM, capillary refill normal, no joint enlargement, no clubbing, cyanosis or edema, no calf tenderness and no pedal edema GENERAL: Yes normal exam except as noted Neuro: IKE COMA SCALE: document GCS findings [place] coma scale eye opening: Spontaneous Ike coma scale verbal response: Orientated Ike coma scale motor response: Obey commands Ike coma scale total score: 15 COMMON NORMALS: patient oriented x3, moves all extremities, no focal motor deficits, no sensory deficits noted and gait normal SENSORIUM/ORIENTATION: Yes alert, Yes oriented to person, Yes oriented to place and Yes oriented to time Skin: COMMON NORMALS: no rashes or lesions noted GENERAL SKIN EXAM: no rashes or lesions noted Course Vital Signs: Vital signs: Vital Signs Temperature 98.4 F 01/12/22 13:46 Pulse Rate 96 01/12/22 13:46 Respiratory Rate 18 01/12/22 13:46 Blood Pressure 147/88 01/12/22 13:46 Pulse Oximetry 99 01/12/22 13:46 MDM - Back Pain/Injury Medical Decision Making XRs negative. Patient feels much better after IM medications given here. I will treat her for musculoskeletal back strain and recommend she follow-up with primary care in approximately a week or so if she does not feel like symptoms are improving. Return to ED precautions verbally discussed with patient. Labs Radiology Impressions Lumbar Spine X-Ray 01/12/22 15:01 IMPRESSION: Mild straightening of the normal lumbar lordosis. This may be positional or due to muscle spasm. Otherwise negative. Discharge Plan Discharge Patient Disposition: Home Clinical Impression: Musculoskeletal back pain Condition: Stable Prescriptions: New cyclobenzaprine 10 mg tablet 10 mg PO TID Qty: 14 0RF ibuprofen 800 mg tablet 800 mg PO Q8H PRN (Reason: pain) Qty: 20 0RF Medrol (Paul) 4 mg tablets,dose pack See Rx Instructions .ROUTE .COMPLEX Qty: 21 0RF Rx Instructions: orally per package directions No Action fluoxetine [Prozac] 20 mg capsule 20 mg PO DAILY Qty: 30 2RF norgestimate-ethinyl estradiol [Tri-Sprintec (28)] 0.18/0.215/0.25 mg-35 mcg (28) tablet 1 tab PO DAILY 0RF trazodone 50 mg tablet 100 mg PO .HS PRN (Reason: insomnia) Qty: 60 0RF Discharge Orders: Discharge ED (Routine); Ordered 01/12/22 Ordered By: Nava Min Referrals: Tung De León MD [Primary Care Provider] - Patient Instructions: Low Back Strain (ED), Musculoskeletal Pain (ED) Coding Level of Care Code ED Maintenance Shop Technician for Ashley Mooney
[2022-01-12] MEDS: dexamethasone 10 mg/mL INJ 8 MG IM (15:31)
[2022-01-12] MEDS: orphenadrine 30 mg/mL Inj 2 mL 60 MG IM (15:32)
[2022-01-12] MEDS: ketorolac 60 mg/2 mL INJ IM (15:32)
--- NOTE | 2022-02-03 08:48 | DCPLANNER ---
strategic planning manager was unable to reach patient on several attempts to speak with patient about getting established with a primary care physician.
== END 2022-01-12 16:33 | disposition home or self-care (01) ==
PROVIDERS: Emergency Provider Physician Assistant; PCP Obstetrics & Gynecology
DX: M54.9 Dorsalgia, unspecified (principal)
CPT/HCPCS: 72100; 96372; 99283; J1100; J1885; J2360

== ENCOUNTER 2022-03-29 18:35 | Emergency (ER) | payer OTHER, MEDICAID, SELFPAY ==
[2022-03-29 18:44] VITALS: BP 132/78; PULSE 87; RESP 16; TEMP 37.1; O2SAT 98; BMI 41.5
--- NOTE | 2022-03-29 19:02 | ECG_ITS ---
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 Measurements Intervals [place] Rate: 62 P: 15 AL: 130 QRS: 19 QRSD: 92 T: 12 QT: 391 QTc: 400 Interpretive Statements SINUS RHYTHM No previous ECG available for comparison Electronically Signed On 03-30-2022 12:09:09 CDT by Ana Bean M.D. [id number]
--- NOTE | 2022-03-29 19:02 | XRR_ITS ---
PROCEDURE INFORMATION: Exam: XR Chest Exam date and time: 03/29/2022 7:35 PM Age: 26 years old Clinical indication: Chest wall pain; Additional info: Cp TECHNIQUE: Imaging protocol: Radiologic exam of the chest. Views: 1 view. COMPARISON: CR XR chest 1V portable [id number] 09/26/2021 4:41 PM FINDINGS: Lungs: No consolidation. Pleural spaces: No pleural effusion. No pneumothorax. Heart/Mediastinum: Mild cardiomegaly is noted. Bones/joints: Unremarkable. XR/XR chest 1V portable [id number] IMPRESSION: 1. Mild cardiomegaly is noted. 2. No acute abnormality demonstrated. 3. There is no interval change from the prior examination.
--- NOTE | 2022-03-29 21:10 | ED_ITS ---
HPI - Syncope General: Chief Complaint: Syncope Stated Complaint: Chest Pain/Dizzy Time Seen by Provider: 03/29/22 20:48 Source: patient Mode of arrival: ambulatory Limitations: no limitations History of Present Illness: 26-year-old female who states that she had some weakness today while at work and had a syncopal episode. States that she had some mild chest pains along with a headache. She states her headache is typical she has headaches every day she rates it a 6 out of 10 she states this is not the worst headache of her life. Her last syncopal event was roughly an hour ago when was for seconds she denies hitting her head denies any worsening improving factors. Associated symptoms: Reports chest pain and headache(s); Deny abdominal pain, fever(s) or nausea Review of Systems Const: Denies: fever(s), chills, body aches or change in appetite Eyes: Denies: blurry vision or eye discomfort ENMT: Denies: throat pain or dental pain Card: Reports: chest pain Resp: Denies: dyspnea GI: Denies: abdominal pain, nausea, vomiting or diarrhea : Denies: dysuria Musc: Denies: neck pain or back pain Skin/Breast: Denies: rash Neuro: Reports: headache(s) Psych: Denies: depression Issa/Lymph: Denies: easy bruising All/Imm: Denies: urticaria PFSH ED PFSH: Medical History No pertinent past medical history Psychiatric care Psychiatric care Viral gastroenteritis Surgical History No pertinent past surgical history Social History Smoking and tobacco status: never smoked Second hand smoke exposure: No Smoking risk assessment/counseling performed?: No Alcohol intake: never Desire information about alcohol rehabilitation?: No Counseling given: No Female Reproductive History: Date of last menstrual period: 02/09/21 Physical Exam Const: COMMON NORMALS: no acute distress, patient oriented x3 and healthy appearing HENMT: COMMON NORMALS: normocephalic and atraumatic HEAD & SCALP: normocephalic and atraumatic Eye: COMMON NORMALS: Equal, round and reactive pupils present and EOMs intact bilaterally PUPIL: Yes Equal, round and reactive pupils present Neck/C-Spine: COMMON NORMALS: full ROM and supple Chest: COMMONS NORMALS: normal inspection of the chest and normal palpation of entire chest wall Resp: COMMON NORMALS: normal respiratory effort, No retractions, No use of accessory muscles and clear to auscultation bilaterally AUSCULTATION: clear to auscultation bilaterally Cardio: COMMON NORMALS: regular rate, regular rhythm and No murmurs present (Cardio) RATE: regular rate RHYTHM: regular rhythm GI: COMMON NORMALS: Normal to inspection, nondistended, normoactive bowel sounds present, Soft to palpation, non-tender and no masses PALPATION: Yes Soft to palpation Extremity: COMMON NORMALS: normal to inspection and full ROM Neuro: COMMON NORMALS: patient oriented x3, moves all extremities and no focal motor deficits Psych: COMMON NORMALS: mental status grossly normal, Normal thought process present and cooperative THOUGHT PROCESS: Normal thought process present Skin: COMMON NORMALS: no rashes or lesions noted and no wounds GENERAL SKIN EXAM: no rashes or lesions noted Course Vital Signs: Vital signs: Vital Signs Temperature 98.7 F 03/29/22 18:44 Pulse Rate 87 03/29/22 18:44 Respiratory Rate 16 03/29/22 18:44 Blood Pressure 132/78 03/29/22 18:44 Pulse Oximetry 98 03/29/22 18:44 MDM - Syncope Medical Decision Making Patient presents here after a syncopal event. She had some mild chest pain D- dimer is mildly elevated CT shows no signs of pulm embolism she feels improved here she is stable for discharge she is to follow-up with her primary care doctor and return if worsening she understands agrees to plan. Lab Data : 03/29/22 21:27 03/29/22 21:27 Radiology Impressions Chest X-Ray 03/29/22 19:02 IMPRESSION: 1. Mild cardiomegaly is noted. 2. No acute abnormality demonstrated. 3. There is no interval change from the prior examination. Chest CTA 03/29/22 21:50 IMPRESSION: 1. Mild cardiomegaly is noted. 2. Pulmonary arteries appear unremarkable. No evidence of pulmonary embolism. 3. No evidence of thoracic aortic aneurysm or dissection. 4. No acute abnormality demonstrated. Laboratory Results WBC 14.3 10^3/uL (4.0-10.0) H 03/29/22: RBC 4.60 10^6/uL (4.1-5.3) 03/29/22: Hgb 12.0 g/dL (11.5-15.3) 03/29/22: Hct 38.6 % (37.0-47.0) 03/29/22: MCV 83.9 fl (81-99) 03/29/22: MCH 26.1 pg (28.0-34.0) L 03/29/22: MCHC 31.1 g/dL (30.0-36.0) 03/29/22: RDW 14.4 % (12.1-15.1) 03/29/22: Plt Count 327 10^3/cmm (130-400) 03/29/22: MPV 9.4 fL (7.4-10.4) 03/29/22: Neut % (Auto) 70.2 % 03/29/22: Lymph % (Auto) 20.7 % 03/29/22: [place] % (Auto) 6.7 % 03/29/22: Eos % (Auto) 1.5 % 03/29/22: Baso % (Auto) 0.4 % 03/29/22: Neut # (Auto) 10.00 10^3/uL (1.8-7.7) H 03/29/22: Lymph # (Auto) 3.0 10^3/uL (0.8-4.8) 03/29/22: [place] # (Auto) 1.0 10^3/uL (0.2-0.9) H 03/29/22: Eos # (Auto) 0.2 10^3/uL (0.0-0.8) 03/29/22: Baso # (Auto) 0.1 10^3/uL (0.0-0.1) 03/29/22: Nucleated RBC % (auto) 0 % 03/29/22 Nucleated RBCs # 0.0 /100WBC 03/29/22: D-Dimer 0.89 ug/mIFEU (0-0.59) H 03/29/22 21:27 Sodium 140 mmol/L (136-145) 03/29/22 21:27 Potassium 4.1 mmol/L (3.5-5.1) 03/29/22 21:27 Chloride 102 mmol/L (98-107) 03/29/22 21:27 Carbon Dioxide 28 mmol/L (22-29) 03/29/22 21: Anion Gap 14.1 (5-19) 03/29/22 21:27 BUN 12 mg/dL (6-20) 03/29/22 21:27 Creatinine 0.7 mg/dL (0.5-0.9) 03/29/22 21: GFR Calculation 102.8 mL/min (90-130) 03/29/22: Glucose 114 mg/dL (65-115) 03/29/22 21: Calculated Osmolality 291 mOsm/kg (285-295) 03/29/22: Calcium 9.8 mg/dL (8.5-10.5) 03/29/22 21: HCG, Qual Negative (Negative) 03/29/22 21:27 EKG Data EKG 1: I personally reviewed and interpreted this EKG as follows: EKG interpretation date: 03/29/22 EKG interpretation time: 21:29 Interpretation: nsr hr [address] or t wave abnormalities qrs 92 qtc 397 Discharge Plan Discharge Patient Disposition: Home Clinical Impression: Syncope Condition: Stable Prescriptions: No Action cyclobenzaprine 10 mg tablet 10 mg PO TID 0RF Label Comments: Patient states not using this medicine. Medrol (Paul) 4 mg tablets,dose pack See Rx Instructions .ROUTE .COMPLEX 0RF Label Comments: Patient states not using this medicine. Rx Instructions: orally per package directions trazodone 100 mg tablet 200 mg PO .HS PRN (Reason: insomnia) Qty: 60 2RF fluoxetine [Prozac] 40 mg capsule 40 mg PO DAILY Qty: 30 2RF ibuprofen 800 mg tablet 800 mg PO Q8H PRN (Reason: pain) Qty: 20 0RF Discharge Orders: Discharge ED (Routine); Ordered 03/29/22 Ordered By: Lenka Yanes Referrals: Tung De León MD [Primary Care Provider] - Discharge Diet: Advance as tolerated Discharge Activity: Resume usual activity Patient Instructions: Syncope (ED) Coding Level of Care Code ED [employer] Supervisor for Darag Fwd Exam Comprehensive
[2022-03-29] MEDS: ketorolac 30 mg/mL INJ 15 MG IVP (21:32)
[2022-03-29 21:33] LABS: Basophils # 0.1 10^3/uL (0.0-0.1); Basophils % 0.4 %; Eosinophils # 0.2 10^3/uL (0.0-0.8); Eosinophils % 1.5 %; Hematocrit 38.6 % (37.0-47.0); Lymphocytes % 20.7 %; Mean Corpuscular HGB Conc 31.1 g/dL (30.0-36.0); Mean Corpuscular Hemoglobin 26.1 pg (28.0-34.0); Mean Corpuscular Volume 83.9 fl (81-99); Mean Platelet Volume 9.4 fL (7.4-10.4); Monocytes % 6.7 %; Neutrophils % 70.2 %; Nucleated Red Blood Cells % 0 %; Platelet Count 327 10^3/cmm (130-400); Red Cell Distribution Width 14.4 % (12.1-15.1); White Blood Count 14.3 10^3/uL (4.0-10.0)
[2022-03-29] MEDS: sodium chloride 0.9% 1,000 ML 999 ML IV (21:34)
[2022-03-29 21:49] LABS: D Dimer 0.89 ug/mIFEU (0-0.59)
--- NOTE | 2022-03-29 21:50 | CTR_ITS ---
PROCEDURE INFORMATION: Exam: CTA Chest With Contrast Exam date and time: 03/29/2022 10:34 PM Age: 26 years old Clinical indication: Pain; Chest pressure; Additional info: Cp TECHNIQUE: Imaging protocol: Computed tomographic angiography of the chest with contrast. 3D rendering (Not supervised by radiologist): MIP and/or 3D reconstructed images were created by the technologist. Radiation optimization: All CT scans at this facility use at least one of these dose optimization techniques: automated exposure control; mA and/or kV adjustment per patient size (includes targeted exams where dose is matched to clinical indication); or iterative reconstruction. Contrast material: OMNIPAQUE 350; Contrast volume: 70 ml; Contrast route: INTRAVENOUS (IV); COMPARISON: CR (CHEST, ) 03/29/2022 7:35 PM RADIATION DOSE METRICS: Total DLP (mGy-cm): 595.46 FINDINGS: Pulmonary arteries: Pulmonary arteries are normal in caliber. No filling defects are demonstrated. No evidence of pulmonary embolism. Aorta: The thoracic aorta appears unremarkable. No aneurysm or dissection demonstrated. Lungs: No consolidative pulmonary infiltrates are noted. Minimal dependent atelectasis at the lung bases. Pleural spaces: No pleural effusion or pneumothorax noted. Heart: Mild cardiomegaly is noted. Lymph nodes: Unremarkable. No enlarged lymph nodes. Bones/joints: Unremarkable. No acute osseous abnormality. Soft tissues: Unremarkable. CT/CT angio chest PE protcl [id number] IMPRESSION: 1. Mild cardiomegaly is noted. 2. Pulmonary arteries appear unremarkable. No evidence of pulmonary embolism. 3. No evidence of thoracic aortic aneurysm or dissection. 4. No acute abnormality demonstrated.
[2022-03-29 21:53] LABS: HCG, Serum Qual Negative (Negative)
[2022-03-29 22:01] LABS: Anion Gap 14.1 (5-19); Blood Urea Nitrogen 12 mg/dL (6-20); Calcium 9.8 mg/dL (8.5-10.5); Carbon Dioxide 28 mmol/L (22-29); Chloride 102 mmol/L (98-107); Glomerular Filtration Rate 102.8 mL/min (90-130); Glucose 114 mg/dL (65-115); Osmolality Calculated 291 mOsm/kg (285-295); Potassium 4.1 mmol/L (3.5-5.1); Sodium 140 mmol/L (136-145)
[2022-03-29] MEDS: iohexol 350 mg/mL 100 mL Btl IV (22:38)
[2022-03-29 23:44] VITALS: BP 140/74; PULSE 96; RESP 18; O2SAT 97
== END 2022-03-29 23:46 | disposition home or self-care (01) ==
PROVIDERS: Emergency Provider Emergency Medicine; PCP Obstetrics & Gynecology
DX: R55 Syncope and collapse (principal)
CPT/HCPCS: 71045; 71275; 80048; 84703; 85025; 85378; 93005; 96361; 96374; 99285; J1885; J7030; Q9967

== ENCOUNTER 2022-05-12 12:49 | Emergency (ER) | payer OTHER, MEDICAID, SELFPAY ==
--- NOTE | 2022-05-12 13:17 | XR_ITS ---
WS: [id number] PORTABLE CHEST HISTORY: chest pain COMPARISON: 03/29/2022 Lungs are clear and well expanded. No pleural effusion or pneumothorax. Cardiac size: Normal. Mediastinum/Aorta: Normal mediastinum. No osseous abnormality seen. XR/XR chest 1V portable [id number] IMPRESSION: Unremarkable portable chest.
[2022-05-12 13:42] VITALS: BP 131/81; PULSE 90; RESP 18; TEMP 37; O2SAT 97
--- NOTE | 2022-05-12 14:03 | W.ED.COVID ---
HPI - COVID General: Chief Complaint: COVID symptoms Stated Complaint: Covid + Time Seen by Provider: 05/12/22 13:47 History of Present Illness: Patient is a 26 old female comes to the ED with upper respiratory symptoms. Patient says symptoms started yesterday. She took an at-home COVID test yesterday and it was positive. She is having symptoms of sore throat, body aches, low-grade fever and nasal congestion. She also endorses having pressure in her ears bilaterally. Denies any cough. COVID 19 common symptoms: positive fever(s), chills, fatigue, body aches, throat pain and nasal congestion; negative non-productive cough, productive cough, dyspnea, headache(s), nausea, vomiting or diarrhea COVID 19 other sytmptoms: negative chest pain COVID Results: SARS-CoV-2 Antigen (Rapid) Negative (Negative) 07/28/21 12:22 SARS-CoV-2 RNA (RT-PCR) Not detected (NOT DETECTED) 08/18/21 13:01 Review of Systems Const: Reports: fever(s), chills, body aches and fatigue Eyes: Denies: change in vision or eye discomfort ENMT: Reports: throat pain, odynophagia, ear or mastoid pain (bilateral ear pressure. ) and nasal congestion; Denies: nasal discharge Card: Denies: chest pain, palpitations, edema, swelling of feet/ankles, dyspnea on exertion or orthopnea Resp: Denies: dyspnea, productive cough or non-productive cough GI: Denies: abdominal pain, nausea, vomiting, diarrhea, constipation or hematochezia : Denies: flank pain, dysuria or hematuria Musc: Denies: neck pain, back pain or extremity swelling Skin/Breast: Denies: rash or new lesions Neuro: Denies: headache(s), numbness in extremities or weakness in extremities PFSH ED PFSH: Medical History No pertinent past medical history Psychiatric care Psychiatric care Viral gastroenteritis Surgical History No pertinent past surgical history Social History Smoking and tobacco status: never smoked Second hand smoke exposure: No Smoking risk assessment/counseling performed?: No Alcohol intake: never Desire information about alcohol rehabilitation?: No Counseling given: No Female Reproductive History: Date of last menstrual period: 02/09/21 Physical Exam Const: COMMON NORMALS: no acute distress, patient oriented x3, healthy appearing and alert GENERAL APPEARANCE: cooperative and comfortable HENMT: COMMON NORMALS: normocephalic, EAC's normal and TM's normal bilaterally HEAD & SCALP: normocephalic EXTERNAL AUDITORY CANAL: EAC's normal TYMPANIC MEMBRANE: TM's normal bilaterally MOUTH: Normal oral and palatal mucosa present THROAT: uvula midline, abnormal tonsil bilateral erythema and hypertrophy 2+ and posterior oropharynx abnormal erythema Neck/C-Spine: COMMON NORMALS: supple GENERAL: Yes normal visual inspection Resp: COMMON NORMALS: normal respiratory effort, No retractions, No use of accessory muscles and clear to auscultation bilaterally AUSCULTATION: clear to auscultation bilaterally Cardio: COMMON NORMALS: regular rate, regular rhythm, S1 normal heart sound present, S2 normal heart sound present, No gallops present (Cardio), No clicks present (Cardio), No murmurs present (Cardio) and Peripheral pulses 2+ throughout RATE: regular rate RHYTHM: regular rhythm HEART SOUNDS: S1 normal heart sound present and S2 normal heart sound present PERIPHERAL PULSES: Peripheral pulses 2+ throughout GI: COMMON NORMALS: Normal to inspection, nondistended, normoactive bowel sounds present, Soft to palpation, non-tender and no masses PALPATION: Yes Soft to palpation : COMMON NORMALS: Yes no CVA tenderness BLADDER/KIDNEY EXAM: Yes no CVA tenderness Back/Pelvis: COMMON NORMALS: no CVA tenderness Extremity: COMMON NORMALS: normal to inspection Neuro: COMMON NORMALS: patient oriented x3 SENSORIUM/ORIENTATION: Yes alert GAIT: Yes Normal gait present Skin: GENERAL SKIN EXAM: dry skin Course Vital Signs: Vital signs: Vital Signs Temperature 98.6 F 05/12/22 13:42 Pulse Rate 90 05/12/22 13:42 Respiratory Rate 18 05/12/22 13:42 Blood Pressure 131/81 05/12/22 13:42 Pulse Oximetry 97 05/12/22 14:04 Oxygen Delivery Ri thod 05/12/22 14:04 MDM - COVID Medical Decision Making Patient is a 26 old female comes to the ED with upper respiratory symptoms. Patient says symptoms started yesterday. She took an at-home COVID test yesterday and it was positive. She is having symptoms of sore throat, body aches, low-grade fever and nasal congestion. She also endorses having pressure in her ears bilaterally. Denies any cough. Vitals are stable. Patient has some erythema of her tonsils and posterior pharynx. The rest of exam is benign. Chest x-ray shows no acute findings. Strep test negative. Given patient's positive COVID test at home and her current clinical symptoms she is diagnosed with COVID-19 and is stable for discharge home. She was sent home with a prescription for prednisone to help with COVID-19. Follow-up with PCP in the next week for reevaluation. Return to ED precautions given. Patient understood and agreed with plan. Lab Data I reviewed the patient's lab results. Radiology Impressions Chest X-Ray 05/12/22 13:17 IMPRESSION: Unremarkable portable chest. Laboratory Results Group A Strep Rapid Negative (Negative) 05/12/22 14:24 SARS-CoV-2 Antigen (Rapid) Negative (Negative) 07/28/21 12:22 SARS-CoV-2 RNA (RT-PCR) Not detected (NOT DETECTED) 08/18/21 13:01 Discharge Plan Discharge Patient Disposition: Home Clinical Impression: COVID-19 Condition: Stable Prescriptions: New Medrol (Paul) 4 mg tablets,dose pack See Rx Instructions .ROUTE .COMPLEX Qty: 21 0RF Rx Instructions: orally per package directions No Action amoxicillin-pot clavulanate 875-125 mg tablet 1 tab PO BID 7 Days Qty: 14 0RF trazodone 100 mg tablet 200 mg PO .HS PRN (Reason: insomnia) Qty: 60 2RF fluoxetine [Prozac] 40 mg capsule 40 mg PO DAILY Qty: 30 2RF ibuprofen 800 mg tablet 800 mg PO Q8H PRN (Reason: pain) Qty: 20 0RF Discharge Orders: Discharge ED (Routine); Ordered 05/12/22 Ordered By: Lito Kilgore Referrals: Tung De León MD [Primary Care Provider] - Discharge Diet: Regular Discharge Activity: Increase activity as tolerated Patient Instructions: COVID-19 (Coronavirus Disease 2019) (ED) Activity Restrictions/Additional Instructions: Follow-up with medical provider as directed in the next 5 to 7 days for reevaluation. Take medications as prescribed. Return to the ER or your medical provider if condition worsens. Please read and understand discharge instructions. Thank you for choosing [facility] for your healthcare needs today. Please realize this is an emergency room and that we are providing you with a medical screening exam and this may not be complete and all inclusive of all the testing and or work up that you may need to determine your ailment or severity of your illness. It is very important that you follow up as instructed or that you return to the Emergency Department should you have concerns or if your condition changes or worsens in any way. Coding Level of Care Code ED Security Intelligence Analyst for Ashley Mooney Exam Comprehensive
[2022-05-12 14:04] VITALS: O2SAT 97
[2022-05-12 14:39] LABS: Rapid Strep A Test Negative (Negative)
== END 2022-05-12 16:45 | disposition home or self-care (01) ==
PROVIDERS: Emergency Provider Physician Assistant; PCP Obstetrics & Gynecology
DX: U07.1 COVID-19 (principal)
CPT/HCPCS: 71045; 87081; 87880; 99283

== ENCOUNTER → 2022-08-11 09:35 | Outpatient (BNVA) | payer OTHER, MEDICAID, SELFPAY | PROVIDERS: PCP Obstetrics & Gynecology; Visit Provider Nurse Practitioner Family | DX: R68.89 Other general symptoms and signs (principal); J02.9 Acute pharyngitis, unspecified; B34.9 Viral infection, unspecified | CPT/HCPCS: 87071; 87400; 87880 ==

== ENCOUNTER 2022-11-23 09:10 | Outpatient (CLI) | payer OTHER, MEDICAID, SELFPAY ==
--- NOTE | 2022-11-23 09:22 | US_ITS ---
WS: [id number] ABDOMINAL ULTRASOUND REASON FOR EXAM: DYSURIA ABDOMINAL PAIN COMPARISON: None available. ORDER DATE: 11/23/2022 9:26 AM TECHNIQUE: Grayscale and Doppler ultrasound examination of the abdomen. FINDINGS: Pancreas: Not clearly visualized due to bowel artifact Abdominal aorta and IVC: Incompletely visualized due to bowel artifact but unremarkable Liver: Liver measures 15.4 cm in length. No bile duct dilatation or focal abnormality Gallbladder: Gallbladder wall thickness measures 0.2 mm. Common bile duct 3 mm in diameter Left kidney: Left kidney measures 10.8 cm x 5.1 cm x 5.4 with normal echotexture Right kidney: Right kidney measures 10.5 cm x 4.8 cm x 4.8 with normal echotexture Spleen: Spleen measures 11.8 centimeters in length with no evidence of focal change. Duplex imaging is unremarkable. US/US abdomen complete* [id number] IMPRESSION: Unremarkable sonogram evaluation as noted.
== END 2022-11-23 09:11 | disposition home or self-care (01) ==
LOC: RAD 09:13
PROVIDERS: PCP Obstetrics & Gynecology; Visit Provider Nurse Practitioner Family
DX: R30.0 Dysuria (principal); R10.2 Pelvic and perineal pain
CPT/HCPCS: 76700

== ENCOUNTER 2022-12-10 09:09 | Outpatient (CLI) | payer OTHER, MEDICAID, SELFPAY ==
[2022-12-10 10:58] LABS: Ferritin 44 ng/mL (15-150); Iron 41 ug/dL (37-145); Vitamin B12 327 pg/mL (232-1245)
== END 2022-12-10 09:10 | disposition home or self-care (01) ==
LOC: LAB 09:13
PROVIDERS: PCP Clinical Nurse Specialist Adult Health; Visit Provider Clinical Nurse Specialist Adult Health
DX: Z01.89 Encounter for other specified special examinations (principal)
CPT/HCPCS: 36415; 82607; 82728; 83540

== ENCOUNTER 2022-12-18 07:58 | Outpatient (CLI) | payer OTHER, MEDICAID, SELFPAY ==
--- NOTE | 2022-12-18 08:30 | US_ITS ---
WS: [id number] US pelv w/transvag [id number] HISTORY: pelvic pain over ovaries COMPARISON: None available. Limited quality evaluation. Uterus: 7.7 cm x 5.4 cm x 5.1 cm. Normal size anteverted uterus. No fibroid or mass. Endometrium: 0.7 cm. Normal. Right ovary: 3.6 cm x 2.4 cm x 2.9 cm. Normal size and vascularity, no cystic or solid masses. Left ovary: 2.9 cm x 2.5 cm x 2.8 cm. Normal size and vascularity, no cystic or solid masses. No free fluid in the cul-de-sac. US/US pelv w/transvag [id number] IMPRESSION: Normal pelvic ultrasound evaluation. Quality is mildly limited and compromised.
== END 2022-12-18 07:59 | disposition home or self-care (01) ==
LOC: RAD 08:01
PROVIDERS: PCP Clinical Nurse Specialist Adult Health; Visit Provider Clinical Nurse Specialist Adult Health
DX: R10.2 Pelvic and perineal pain (principal); E11.9 Type 2 diabetes mellitus without complications; E61.1 Iron deficiency; E66.01 Morbid (severe) obesity due to excess calories
CPT/HCPCS: 76830; 76856; 80053; 80061; 83036; 84443; 85025

== ENCOUNTER 2023-04-12 17:19 | Emergency (ER) | payer OTHER, SELFPAY ==
[2023-04-12 17:27] VITALS: BP 148/91; PULSE 101; RESP 18; TEMP 37.4; O2SAT 95; BMI 52.0
--- NOTE | 2023-04-12 19:46 | XRR_ITS ---
PROCEDURE INFORMATION: Exam: XR Chest Exam date and time: 04/12/2023 7:53 PM Age: 27 years old Clinical indication: Cough; Additional info: Cough, pain on left TECHNIQUE: Imaging protocol: Radiologic exam of the chest. Views: 2 views. COMPARISON: CR XR chest 1V portable [id number] 05/12/2022 1:30 PM FINDINGS: Lungs: Unremarkable. No consolidation. Pleural spaces: Unremarkable. No pleural effusion. No pneumothorax. Heart/Mediastinum: Unremarkable. No cardiomegaly. Bones/joints: Unremarkable. XR/XR chest 2V* [id number] IMPRESSION: No acute findings.
--- NOTE | 2023-04-12 20:17 | W.ED.GENADLT ---
HPI - General Adult General: Chief complaint: General Medical Stated complaint: cough , side upper side Time Seen by Provider: 04/12/23 19:12 History of Present Illness: 27yo female presents with left-sided rib pain that radiates across her chest. Patient reports that she has been coughing for the past several days. States that she did have a fever last week, but has not had another fever since last night and it was low-grade last night. States that she had a coughing fit yesterday and felt a pop in her left ribs. States that she has had increased discomfort to the area since. Patient reports that it does radiate from the side of her ribs across her chest. She states that it is there with deep breathing and with movement. She has not tried any medications for the discomfort. She denies difficulty breathing, shortness of breath, chest pain, any other concern at this time. Associated symptoms: Deny chest pain, dyspnea, headache(s) or vomiting Review of Systems Const: Reports: fever(s) (resolved); Denies: chills or body aches ENMT: Denies: throat pain Card: Denies: chest pain Resp: Denies: dyspnea GI: Denies: vomiting or diarrhea Musc: Denies: neck pain Neuro: Denies: headache(s) PFS ED PFSH: Medical History Fatty liver Generalized anxiety disorder Moderate episode of recurrent major depressive disorder Morbid obesity Pelvic pain Type 2 diabetes mellitus without complications Viral gastroenteritis Surgical History No pertinent past surgical history Family History Other Cancer Diabetes Hypertension Thyroid disease Social History Smoking and tobacco status: never smoked Second hand smoke exposure: No Alcohol intake: never Substance/Drug Use: never Current occupation: [employer] Physical Exam Const: COMMON NORMALS: no acute distress, patient oriented x3 and alert GENERAL APPEARANCE: cooperative OTHER: Patient is sitting upright in a recliner in no acute distress. She is able to make position changes unassisted. No family is at bedside HENMT: COMMON NORMALS: normocephalic, atraumatic and moist oral mucous membranes HEAD & SCALP: normocephalic and atraumatic FACE & SINUS: normal facial exam Eye: GENERAL EYE: appearance normal, both eyes and all related structures Neck/C-Spine: COMMON NORMALS: full ROM Chest: CHEST: Yes localized rib tenderness with anteroposterior compression Location: 4th rib and 5th rib and No Sternal flail present Resp: COMMON NORMALS: normal respiratory effort and clear to auscultation bilaterally EFFORT & INSPECTION: Yes able to speak in complete sentences AUSCULTATION: clear to auscultation bilaterally Cardio: COMMON NORMALS: regular rate and regular rhythm RATE: regular rate RHYTHM: regular rhythm Neuro: COMMON NORMALS: patient oriented x3 and moves all extremities SENSORIUM/ORIENTATION: Yes alert Psych: COMMON NORMALS: cooperative ATTITUDE: Yes calm Course Vital Signs: Vital signs: Vital Signs Temperature 99.3 F 04/12/23 17:27 Pulse Rate 101 H 04/12/23 17:27 Respiratory Rate 18 04/12/23 17:27 Blood Pressure 148/91 04/12/23 17:27 Pulse Oximetry 95 04/12/23 17:27 Oxygen Delivery Me thod Room Air 04/12/23 17:27 MDM - General Adult Medical Decision Making 27yo female here with left-sided rib pain after a coughing fit where she heard a pop on the left rib area. Patient states she does have increased pain with deep breathing and with certain movements. She has not taken any medication for the discomfort. States that she has been coughing for the past several days. Reports that she did have a fever for multiple days, but has not had a fever since last night and it was low-grade at that time. Patient denies difficulty breathing, shortness of breath, chest pain, abdominal pain, vomiting, diarrhea, any other concern at this time. Patient is nontoxic in appearance. Vital signs are stable. No acute abnormalities noted on chest x-ray. Discussed findings with patient. Advised this is likely costochondritis. Discussed use of anti-inflammatories to help with her symptoms. Advised splinting to help with the rib discomfort. Recommend follow-up with primary care, call later this week with an update of symptoms and to discuss a recheck. Advised return to the emergency department if any rapid worsening symptoms, difficulty breathing, shortness of breath, chest pain, and as needed. Lab Data Radiology Impressions Chest X-Ray 04/12/23 19:46 IMPRESSION: No acute findings. Discharge Plan Discharge Patient Disposition: Home Clinical Impression: Acute costochondritis Condition: Stable Prescriptions: No Action trazodone 100 mg tablet 200 mg PO .HS PRN (Reason: insomnia) Qty: 60 2RF clindamycin-benzoyl peroxide 1.2 %(1 % base) -5 % gel 1 applic topical DAILY Qty: 45 6RF Rx Instructions: Apply thin film to face, neck, chest, and back every morning. May bleach clothes. adapalene 0.3 % gel with pump 1 applic topical DAILY Qty: 45 3RF Rx Instructions: Apply a pea size amount. use 3 times a week the increase. nightly ciclopirox 0.77 % cream 1 applic topical BID Qty: 90 0RF Rx Instructions: Apply to affected areas twice daily for 4 weeks then as needed for flares ondansetron 8 mg tablet,disintegrating 8 mg PO Q12H PRN (Reason: nausea and vomiting) Qty: 14 0RF duloxetine 30 mg capsule,delayed release(DR/EC) 30 mg PO DAILY Qty: 30 11RF norgestimate-ethinyl estradiol [Tri-VyLibra] 0.18/0.215/0.25 mg-35 mcg (28) tablet 1 tab PO DAILY Qty: 84 3RF ibuprofen 800 mg tablet 800 mg PO Q8H PRN (Reason: pain) Qty: 20 0RF Discharge Orders: Discharge ED (Routine); Ordered 04/12/23 Ordered By: Jovanni Ha Referrals: Harry Aguilar, DR[facility] IN WAITER/WAITRESS [Primary Care Provider] - Discharge Diet: Usual diet Discharge Activity: Resume usual activity Patient Instructions: Costochondritis (ED) Activity Restrictions/Additional Instructions: Use [id number] anti-inflammatories to help with the discomfort Use a small pillow or your hand to splint the left rib area for deep breathing and coughing Follow-up with your doctor, call later this week with an update of symptoms and to discuss or recheck Return to the emergency department if any rapid worsening symptoms, difficulty breathing, shortness of breath, chest pain, and as needed Coding Level of Care Code ED Office Coordinator for Ashley Mooney
--- NOTE | 2023-04-12 21:27 | PC.NURSE ---
this RN only provided discharge instructions to the patient
== END 2023-04-12 21:29 | disposition home or self-care (01) ==
PROVIDERS: Emergency Provider Nurse Practitioner; PCP Clinical Nurse Specialist Adult Health
DX: M94.0 Chondrocostal junction syndrome [Tietze] (principal); E11.9 Type 2 diabetes mellitus without complications; E66.01 Morbid (severe) obesity due to excess calories; Z68.43 Body mass index [BMI] 50.0-59.9, adult; Z79.899 Other long term (current) drug therapy
CPT/HCPCS: 12345; 71046; 99283

== ENCOUNTER 2023-08-31 13:22 | Emergency (ER) | payer OTHER, SELFPAY ==
[2023-08-31 13:38] VITALS: BP 137/86; PULSE 81; RESP 15; TEMP 37.1; O2SAT 99; BMI 52.0
--- NOTE | 2023-08-31 13:54 | ED_ITS ---
HPI - Abdominal Pain 2 General: Chief Complaint: Abdominal Pain Stated Complaint: abd pain Time Seen by Provider: 08/31/23 13:40 Source: patient Mode of arrival: ambulatory History of Present Illness: 27-year-old female presents emergency ro om with mid right side pain radiating down into the groin began a couple of hours ago. She has noticed exam makes it better or worse she lost her appetite. She was able to utilize she denies any fevers or chills no dysuria urgency or frequency she has been very nauseated but has not vomited no diarrhea. She denies known . MD elicited complaint: abdominal pain Onset (ago): hour(s) Pain Consistency: constant Location: None Severity: moderate Quality: cramping Exacerbating factors: nothing Relieving factors: nothing Associated Symptoms: Reports GI cramping, nausea and poor appetite; Denies anorexia, belching, bloating, change in bowel habits, change in stool character, chills, coffee ground emesis, constipation, diarrhea, dyspepsia, dysuria, excessive flatus, fever(s), heartburn, hematochezia, hematuria, hematemesis, fecal incontinence, loose stools, melena, syncope and vomiting Related Data: Date of Last Menstrual Period: 08/18/23 Review of Systems 2 Const: Denies: fever(s) or chills Card: Denies: chest pain or syncope Resp: Denies: dyspnea GI: Reports: nausea and GI cramping; Denies: abdominal pain, vomiting, hematemesis, coffee ground emesis, heartburn, diarrhea, constipation, bloating, belching, excessive flatus, fecal incontinence, change in bowel habits, change in stool character, hematochezia or melena : Denies: dysuria, urinary frequency, urinary urgency or hematuria Musc: Denies: neck pain or back pain Skin/Breast: Denies: rash PFSH ED 2 PFSH: Medical History Pelvic pain Fatty liver Type 2 diabetes mellitus without complications Morbid obesity Viral gastroenteritis Generalized anxiety disorder Moderate episode of recurrent major depressive disorder Surgical History No pertinent past surgical history Family History Other Cancer Diabetes Hypertension Thyroid disease Social History Smoking and tobacco/nicotine status: never used tobacco/nicotine Second hand smoke exposure: No Alcohol intake: never Substance/Drug Use: never Current occupation: [employer] Female Reproductive History: Date of last menstrual period: 08/18/23 Physical Exam 2 Const: GENERAL APPEARANCE: cooperative and comfortable O RIENTATION/CONSCIOUSNESS: Yes awake, Yes oriented to person, Yes oriented to place and Yes oriented to time HENMT: COMMON NORMALS: normocephalic, atraumatic and hearing grossly normal bilaterally HEAD & SCALP: normocephalic and atraumatic Resp: COMMON NORMALS: normal respiratory effort, No retractions, No use of accessory muscles and clear to auscultation bilaterally AUSCULTATION: clear to auscultation bilaterally Cardio: COMMON NORMALS: regular rate, regular rhythm and No murmurs present (Cardio) RATE: regular rate RHYTHM: regular rhythm GI: COMMON NORMALS: No hepatosplenomegaly present AUSCULTATION: Yes normoactive bowel sounds PALPATION: Yes Tenderness to palpation present (GI) (Right side), No Guarding due to palpation present (GI) and Yes No hepatosplenomegaly present Extremity: COMMON NORMALS: normal to inspection, capillary refill normal, no clubbing, cyanosis or edema, no calf tenderness and no pedal edema Neuro: SENSORIUM/ORIENTATION: Yes oriented to person, Yes oriented to place and Yes oriented to time Skin: COMMON NORMALS: no rashes or lesions noted GENERAL SKIN EXAM: no rashes or lesions noted Course 2 Vital Signs: Vital signs: Vital Signs Temperature 98.7 F 08/31/23 13:38 Pulse Rate 80 08/31/23 15:30 Respiratory Rate 15 08/31/23 13:38 Blood Pressure 137/77 08/31/23 15:30 Pulse Oximetry 96 08/31/23 15:30 Oxygen Delivery Me thod Room Air 08/31/23 14:30 MDM - Abdominal Pain Medical Decision Making Labs reviewed. Repeat abdominal exam essentially benign. I suspect she is having biliary colic discussed with her dietary modifications and started on pantoprazole set up for outpatient gallbladder ultrasound and HIDA scan follow- up with surgery Medical Records I reviewed the patient's medical records. Lab Data I reviewed the patient's lab results. 12/27/23 13:51 08/31/23 13:51 Labs/Radiology: Laboratory Results WBC 9.90 10^3/uL (3.29-11.43) 08/31/23 13:51 RBC 5.13 10^6/uL (3.85-5.65) 08/31/23 13:51 Hgb 13.30 g/dL (11.27-16.99) 08/31/23 13:51 Hct 42.0 % (36-47) 08/31/23 13:51 MCV 81.9 fl (85-98) L 08/31/23 13:51 MCH 25.9 pg (27-33) L 08/31/23 13:51 MCHC 31.7 g/dL (30-55) 08/31/23 13:51 RDW 14.2 % (12.1-15.1) 08/31/23 13:51 Plt Count 375 10^3/cmm (157-399) 08/31/23 13:51 MPV 9.8 fL (7.4-10.4) 08/31/23 13:51 Neut % (Auto) 68.1 % 08/31/23 13:51 Lymph % (Auto) 22.2 % 08/31/23 13:51 [place] % (Auto) 6.8 % 08/31/23 13:51 Eos % (Auto) 2.0 % 08/31/23 13:51 Baso % (Auto) 0.5 % 08/31/23 13:51 Neut # (Auto) 6.74 10^3/uL (1.8-7.7) 08/31/23 13:51 Lymph # (Auto) 2.2 10^3/uL (0.8-4.8) 08/31/23 13:51 [place] # (Auto) 0.7 10^3/uL (0.2-0.9) 08/31/23 13:51 Eos # (Auto) 0.2 10^3/uL (0.0-0.8) 08/31/23 13:51 Baso # (Auto) 0.1 10^3/uL (0.0-0.1) 08/31/23 13:51 Nucleated RBC % (auto) 0 % 08/31/23 13:51 Nucleated RBCs # 0.0 /100WBC 08/31/23 13:51 Sodium 138 mmol/L (136-145) 08/31/23 13:51 Potassium 3.8 mmol/L (3.5-5.1) 08/31/23 13:51 Chloride 101 mmol/L (98-107) 08/31/23 13:51 Carbon Dioxide 26 mmol/L (22-29) 08/31/23 13:51 Anion Gap 14.8 (5-19) 08/31/23 13:51 BUN 11 mg/dL (6-20) 08/31/23 13:51 Creatinine 0.7 mg/dL (0.5-0.9) 08/31/23 13:51 GFR Calculation 102.0 mL/min (90-130) 08/31/23 13:51 Glucose 106 mg/dL (65-115) 08/31/23 13:51 Calculated Osmolality 286 mOsm/kg (285-295) 08/31/23 13:51 Calcium 10.1 mg/dL (8.5-10.5) 08/31/23 13:51 Total Bilirubin 0.2 mg/dL (0.15-1.2) 08/31/23 13:51 AST 23 U/L (0-32) 08/31/23 13:51 ALT 36 U/L (0-33) H 08/31/23 13:51 Alkaline Phosphatase 81 U/L (35-105) 08/31/23 13:51 Total Protein 7.6 g/dL (6.6-8.7) 08/31/23 13:51 Albumin 4.4 g/dL (3.5-5.2) 08/31/23 13:51 Globulin 3.2 g/dL (1.3-4.6) 08/31/23 13:51 Lipase 20 U/L (13-60) 08/31/23 13:51 HCG, Qual Negative (Negative) 08/31/23 13:51 Urine Color Yellow (Yellow) 08/31/23 14:15 Urine Appearance Sl hazy (CLEAR) A 08/31/23 14:15 Urine pH 5 (5-7) 08/31/23 14:15 Ur Specific [place] 1.025 (1.005-1.030) 08/31/23 14:15 Urine Protein Neg (Negative) 08/31/23 14:15 Urine Glucose (UA) Norm (Normal) 08/31/23 14:15 Urine Ketones Negative (Negative) 08/31/23 14:15 Urine Blood Neg (Negative) 08/31/23 14:15 Urine Nitrate Negative (Negative) 08/31/23 14:15 Urine Bilirubin Neg (Negative) 08/31/23 14:15 Urine Urobilinogen Norm mg/dL (Negative) 08/31/23 14:15 Ur Leukocyte Esterase Negative (Negative) 08/31/23 14:15 Urine RBC None /hpf (0-2) 08/31/23 14:15 Urine WBC 0-4 /hpf (0-5) H 08/31/23 14:15 Ur Squamous Epith Cells 10-15 /hpf (0-5) H 08/31/23 14:15 Amorphous Sediment Not Reportable 08/31/23 14:15 Urine Bacteria 1+ /hpf (NONE) H 08/31/23 14:15 Urine Mucus 2+ /hpf 08/31/23 14:15 No radiology studies performed this visit Discharge Plan Discharge Patient Disposition: Home Clinical Impression: Abdominal pain, Biliary colic Condition: Stable Prescriptions: New Protonix 40 mg tablet,delayed release (DR/EC) 40 mg PO BID 10 Days Qty: 40 0RF Rx Instructions: 1 p.o. twice daily for 10 days then 1 p.o. daily No Action duloxetine 30 mg capsule,delayed release(DR/EC) 30 mg PO DAILY Qty: 30 11RF ibuprofen 800 mg tablet 800 mg PO Q8H PRN (Reason: pain) Qty: 20 0RF ciclopirox 0.77 % cream 1 applic topical BID Qty: 90 0RF Rx Instructions: Apply to affected areas twice daily for 4 weeks then as needed for flares Discharge Orders: Discharge ED (Routine); Ordered 08/31/23 Ordered By: Sean Lerma Referrals: Harry Aguilar, SCALE OPERATOR [Primary Care Provider] - Patient Instructions: Biliary Colic (ED), Low Fat Diet (ED), Abdominal Pain (ED), Opioid Safety, Pain Management Activity Restrictions/Additional Instructions: Thank you for choosing [facility] for your healthcare needs today. Please realize this is an emergency room and that we are providing you with a medical screening exam and this may not be complete and all inclusive of all the testing and or work up that you may need to determine your ailment or severity of your illness. It is very important that you follow up as instructed or that you return to the Emergency Department should you have concerns or if your condition changes or worsens in any way. You are seen today for abdominal pain. Suspect you may have biliary colic. Will set you up for an outpatient ultrasound of your gallbladder and a HIDA scan follow-up with general surgery. Try to cut back on ibuprofen. Start the pantoprazole 1 pill twice daily for 10 days then 1 pill once daily. If symptoms worsen return to the emergency room. Avoid fatty foods fried foods dairy products red meat and citrus fruits. Coding Level of Care Code ED Personal Support Worker for Ashley Mooney
[2023-08-31 14:05] LABS: Basophils # 0.1 10^3/uL (0.0-0.1); Basophils % 0.5 %; Eosinophils # 0.2 10^3/uL (0.0-0.8); Lymphocytes # 2.2 10^3/uL (0.8-4.8); Lymphocytes % 22.2 %; Mean Corpuscular HGB Conc 31.7 g/dL (30-55); Mean Corpuscular Hemoglobin 25.9 pg (27-33); Mean Corpuscular Volume 81.9 fl (85-98); Mean Platelet Volume 9.8 fL (7.4-10.4); Monocytes # 0.7 10^3/uL (0.2-0.9); Monocytes % 6.8 %; Neutrophils # 6.74 10^3/uL (1.8-7.7); Neutrophils % 68.1 %; Nucleated Red Blood Cells % 0 %; Platelet Count 375 10^3/cmm (157-399); Red Blood Count 5.13 10^6/uL (3.85-5.65); Red Cell Distribution Width 14.2 % (12.1-15.1)
[2023-08-31] MEDS: sodium chloride 0.9% 1,000 ML 999 ML IV (14:10)
[2023-08-31] MEDS: ondansetron 2 mg/ML SDV 2 mL 4 MG IVP (14:10)
[2023-08-31 14:11] VITALS: BP 137/84
[2023-08-31 14:21] LABS: Alanine Aminotransferase 36 U/L (0-33); Albumin Level 4.4 g/dL (3.5-5.2); Alkaline Phosphatase 81 U/L (35-105); Anion Gap 14.8 (5-19); Aspartate Amino Transferase 23 U/L (0-32); Blood Urea Nitrogen 11 mg/dL (6-20); Calcium 10.1 mg/dL (8.5-10.5); Carbon Dioxide 26 mmol/L (22-29); Chloride 101 mmol/L (98-107); Creatinine Clr Calc Pharmacy 152.3954; Globulin 3.2 g/dL (1.3-4.6); Glucose 106 mg/dL (65-115); Lipase 20 U/L (13-60); Osmolality Calculated 286 mOsm/kg (285-295); Potassium 3.8 mmol/L (3.5-5.1); Sodium 138 mmol/L (136-145); Total Bilirubin 0.2 mg/dL (0.15-1.2); Total Protein 7.6 g/dL (6.6-8.7)
[2023-08-31 14:27] LABS: HCG, Serum Qual Negative (Negative)
[2023-08-31 14:29] LABS: Urine Color Yellow (Yellow)
[2023-08-31 14:30] VITALS: BP 130/78; PULSE 83; O2SAT 95
[2023-08-31 14:30] LABS: Add Urine Microscopic? YES; Bilirubin Urine Neg (Negative); Blood Urine Neg (Negative); Glucose Urine UA Norm (Normal); Ketones Urine Negative (Negative); Leukocyte Esterase Urine Negative (Negative); Nitrate Urine Negative (Negative); Protein Urine Neg (Negative); Specific Gravity, Urine 1.025 (1.005-1.030); Urine Appearance SL Hazy (CLEAR); Urobilinogen Urine Norm (Negative); pH Urine 5 (5-7)
[2023-08-31 14:43] LABS: Add Urine Culture? No; Bacteria Urine 1+ /hpf; Mucus Urine 2+ /hpf; WBC Urine 0-4 /hpf (0-5)
[2023-08-31 15:30] VITALS: BP 137/77; PULSE 80; O2SAT 96
--- NOTE | 2023-09-01 10:39 | DCPLANNER ---
Message was sent to general surgery on 09/01/23 at [id number]. Clinic to contact patient
== END 2023-08-31 15:55 | disposition home or self-care (01) ==
PROVIDERS: Nurse Practitioner Family; Emergency Provider Family Medicine; PCP Clinical Nurse Specialist Adult Health
DX: K80.50 Calculus of bile duct without cholangitis or cholecystitis without obstruction (principal); E11.9 Type 2 diabetes mellitus without complications
CPT/HCPCS: 36415; 80053; 81001; 83690; 84703; 85025; 96361; 96374; 99284; J2405; J7030

== ENCOUNTER → 2023-10-05 13:15 | Outpatient (BNVA) | payer SELFPAY | PROVIDERS: PCP Clinical Nurse Specialist Adult Health; Visit Provider Nurse Practitioner Family | DX: R09.81 Nasal congestion (principal) | CPT/HCPCS: 87400 ==

== ENCOUNTER → 2023-11-08 14:22 | Outpatient (BNVA) | payer OTHER, SELFPAY | PROVIDERS: PCP Clinical Nurse Specialist Adult Health; Visit Provider Clinical Nurse Specialist Adult Health | DX: E11.9 Type 2 diabetes mellitus without complications (principal) | CPT/HCPCS: 80053; 82306; 83036; 84443 ==

== ENCOUNTER 2023-11-21 13:01 | Emergency (ER) | payer OTHER, SELFPAY ==
[2023-11-21 13:05] VITALS: BP 141/87; PULSE 99; RESP 18; TEMP 36.6; O2SAT 98; BMI 52.3
--- NOTE | 2023-11-21 13:21 | CT_ITS ---
WS: [id number] CT ABDOMEN PELVIS TECHNIQUE: Contrast-enhanced CT of the abdomen and pelvis with coronal and sagittal reformatted image s. CLINICAL INFORMATION: abd pain COMPARISON: None. DLP: 1498.[address] scans at [facility] use at least one of these dose optimization techniques: automated e xposure control; mA and/or kV adjustment per patient size (includes targeted exams where dose is matc hed to clinical indication); or iterative reconstruction. FINDINGS: Lung bases are well aerated. Mild diffuse fatty infiltration of the liver. Normal spleen. Small esoph ageal hiatal hernia. Normal portal vein and splenic vein. Adrenal glands are normal. Normal renal par enchymal enhancement. No hydronephrosis. Normal caliber abdominal aorta. Normal sigmoid colon. Mild c onstipation in the cecum and RIGHT colon and proximal transverse colon. Tiny fat-containing umbilical hernia. IMPRESSION: 1. Mild diffuse fatty infiltration of the liver with mild hepatomegaly. 2. Small esophageal hernia. 3. No hydronephrosis in either kidney. 4. Mild constipation in the RIGHT colon cecum and proximal transverse colon. 5. No other acute findings.
--- NOTE | 2023-11-21 13:23 | W.ED.FEMALGU ---
HPI - Female Genitourinary General: Chief complaint: Urogenital-Female Stated complaint: N/V, lower abd pain Time Seen by Provider: 11/21/23 13:11 Source: patient Mode of arrival: ambulatory Limitations: no limitations History of Present Illness: 27-year-old female states she has been having lower abdominal pain since this morning. States it suprapubic and right lower quadrant states she has had some dysuria as well. States the pain is worse and she rates her pain a 7 out of 10 currently she denies any vaginal discharge her last menstruation was 2 weeks ago has had some nausea denies any vomiting. Associated symptoms: Reports abdominal pain; Deny headache(s) or nausea Date of Last Menstrual Period: 11/07/23 Review of Systems Const: Denies: fever(s), chills, body aches or change in appetite ENMT: Denies: throat pain or dental pain Card: Denies: chest pain Resp: Denies: dyspnea GI: Reports: abdominal pain; Denies: nausea, vomiting or diarrhea : Reports: dysuria Musc: Denies: neck pain or back pain Skin/Breast: Denies: rash Neuro: Denies: headache(s) PFSH ED PFSH: Medical History Trauma and stressor-related disorder Type 2 diabetes mellitus without complications diet controlled Moderate episode of recurrent major depressive disorder Generalized anxiety disorder Pelvic pain Morbid obesity Fatty liver Surgical History No pertinent past surgical history Family History Other Cancer Diabetes Hypertension Thyroid disease Social History Smoking and tobacco/nicotine status: never used tobacco/nicotine Second hand smoke exposure: No Alcohol intake: never Substance/Drug Use: never Current occupation: [employer] Female Reproductive History: Date of last menstrual period: 11/07/23 Physical Exam Const: COMMON NORMALS: no acute distress, patient oriented x3 and healthy appearing HENMT: COMMON NORMALS: normocephalic and atraumatic HEAD & SCALP: normocephalic and atraumatic Neck/C-Spine: COMMON NORMALS: full ROM and supple Chest: COMMONS NORMALS: normal inspection of the chest and normal palpation of entire chest wall Resp: COMMON NORMALS: normal respiratory effort, No retractions, No use of accessory muscles and clear to auscultation bilaterally AUSCULTATION: clear to auscultation bilaterally Cardio: COMMON NORMALS: regular rate, regular rhythm and No murmurs present (Cardio) RATE: regular rate RHYTHM: regular rhythm GI: COMMON NORMALS: Normal to inspection, nondistended, normoactive bowel sounds present, Soft to palpation and no masses PALPATION: Yes Soft to palpation and Yes Tenderness to palpation present (GI) Details: RLQ Extremity: COMMON NORMALS: normal to inspection and full ROM Neuro: COMMON NORMALS: patient oriented x3, moves all extremities and no focal motor deficits Psych: COMMON NORMALS: mental status grossly normal, Normal thought process present and cooperative THOUGHT PROCESS: Normal thought process present Skin: COMMON NORMALS: no rashes or lesions noted and no wounds GENERAL SKIN EXAM: no rashes or lesions noted Course Vital Signs: Vital signs: Vital Signs Temperature 97.8 F 11/21/23 13:05 Pulse Rate 99 11/21/23 13:05 Respiratory Rate 18 11/21/23 13:05 Blood Pressure 141/87 11/21/23 13:05 Pulse Oximetry 98 11/21/23 13:05 MDM - Female Medical Decision Making Patient presents here with abdominal pain CT shows some constipation imaging otherwise normal lab works normal patient stable for discharge follow-up PCP return if worsening. Medical Records I reviewed the patient's medical records. Lab Data I reviewed the patient's lab results. 11/21/23 13:26 11/21/23 13:26 Laboratory Results WBC 11.61 10^3/uL (3.29-11.43) H 11/21/23 13:26 RBC 4.94 10^6/uL (3.85-5.65) 11/21/23 13:26 Hgb 12.70 g/dL (11.27-16.99) 11/21/23 13:26 Hct 40.7 % (36-47) 11/21/23 13:26 MCV 82.4 fl (85-98) L 11/21/23 13:26 MCH 25.7 pg (27-33) L 11/21/23 13:26 MCHC 31.2 g/dL (30-55) 11/21/23 13:26 RDW 14.1 % (12.1-15.1) 11/21/23 13:26 Plt Count 301 10^3/cmm (157-399) 11/21/23 13:26 MPV 9.7 fL (7.4-10.4) 11/21/23 13:26 Neut % (Auto) 73.9 % 11/21/23 13:26 Lymph % (Auto) 18.0 % 11/21/23 13:26 [place] % (Auto) 5.3 % 11/21/23 13:26 Eos % (Auto) 2.0 % 11/21/23 13:26 Baso % (Auto) 0.5 % 11/21/23 13: Neut # (Auto) 8.58 10^3/uL (1.8-7.7) H 11/21/23 13: Lymph # (Auto) 2.1 10^3/uL (0.8-4.8) 11/21/23 13:26 [place] # (Auto) 0.6 10^3/uL (0.2-0.9) 11/21/23 13:26 Eos # (Auto) 0.2 10^3/uL (0.0-0.8) 11/21/23 13:26 Baso # (Auto) 0.1 10^3/uL (0.0-0.1) 11/21/23 13: Nucleated RBC % (auto) 0 % 11/21/23 13: Nucleated RBCs # 0.0 /100WBC 11/21/23 13:26 Sodium 137 mmol/L (136-145) 11/21/23 13:26 Potassium 4.0 mmol/L (3.5-5.1) 11/21/23 13:26 Chloride 100 mmol/L (98-107) 11/21/23 13:26 Carbon Dioxide 26 mmol/L (22-29) 11/21/23 13:26 Anion Gap 15.0 (5-19) 11/21/23 13:26 BUN 12 mg/dL (6-20) 11/21/23 13:26 Creatinine 0.7 mg/dL (0.5-0.9) 11/21/23 13:26 GFR Calculation 102.0 mL/min (90-130) 11/21/23 13:26 Glucose 90 mg/dL (65-115) 11/21/23 13:26 Calculated Osmolality 283 mOsm/kg (285-295) L 11/21/23 13:26 Calcium 9.6 mg/dL (8.5-10.5) 11/21/23 13:26 Total Bilirubin 0.2 mg/dL (0.15-1.2) 11/21/23 13:26 AST 15 U/L (0-32) 11/21/23 13:26 ALT 17 U/L (0-33) 11/21/23 13:26 Alkaline Phosphatase 79 U/L (35-105) 11/21/23 13:26 Total Protein 7.0 g/dL (6.6-8.7) 11/21/23 13:26 Albumin 4.1 g/dL (3.5-5.2) 11/21/23 13:26 Globulin 2.9 g/dL (1.3-4.6) 11/21/23 13:26 Lipase 18 U/L (13-60) 11/21/23 13:26 HCG, Qual Negative (Negative) 11/21/23 13:26 Urine Color Yellow (Yellow) 11/21/23 15:19 Urine Appearance Clear (CLEAR) 11/21/23 15:19 Urine pH 5 (5-7) 11/21/23 15:19 Ur Specific [place] 1.005 (1.005-1.030) 11/21/23 15:19 Urine Protein Neg (Negative) 11/21/23 15:19 Urine Glucose (UA) Norm (Normal) 11/21/23 15:19 Urine Ketones Negative (Negative) 11/21/23 15:19 Urine Blood Neg (Negative) 11/21/23 15:19 Urine Nitrate Negative (Negative) 11/21/23 15:19 Urine Bilirubin Neg (Negative) 11/21/23 15:19 Urine Urobilinogen Neg mg/dL (Negative) 11/21/23 15:19 Ur Leukocyte Esterase Negative (Negative) 11/21/23 15:19 All radiology interpretation(s) finalized by discharge Discharge Plan Discharge Patient Disposition: Home Clinical Impression: Abdominal pain Qualifiers: Abdominal location: generalized Qualified Code(s): R10.84 - Generalized abdominal pain Condition: Stable Prescriptions: No Action norgestimate-ethinyl estradiol 0.18/0.215/0.25 mg-35 mcg (28) tablet 1 tab PO QAM ibuprofen 800 mg tablet 800 mg PO Q8H PRN (Reason: Pain) albuterol sulfate 90 mcg/actuation HFA aerosol inhaler 2 puff inhalation Q4H PRN (Reason: Shortness Of Breath) Vitamin D3 125 mcg (5,000 unit) Tablet 125 mcg PO QAM duloxetine 30 mg capsule,delayed release(DR/EC) 30 mg PO QAM Discharge Orders: Discharge ED (Routine); Ordered 11/21/23 Ordered By: Lenka Yanes Referrals: Harry Aguilar, CAT SKINNER [Primary Care Provider] - 4-7 days Discharge Diet: Advance as tolerated Discharge Activity: Resume usual activity Patient Instructions: Abdominal Pain (ED) Coding Level of Care Code ED Director Of Rehabilitation for Ashley Mooney
--- NOTE | 2023-11-21 13:27 | PC.PHAR ---
pt states she takes care of her own medications-pt states she is no longer taking metformin er 500mg bid filled 09/12/23 30d/s or protonix 40mg daily filled 08/31/23 40d/s
[2023-11-21 13:31] LABS: Basophils # 0.1 10^3/uL (0.0-0.1); Basophils % 0.5 %; Eosinophils # 0.2 10^3/uL (0.0-0.8); Hematocrit 40.7 % (36-47); Lymphocytes # 2.1 10^3/uL (0.8-4.8); Mean Corpuscular HGB Conc 31.2 g/dL (30-55); Mean Corpuscular Hemoglobin 25.7 pg (27-33); Mean Corpuscular Volume 82.4 fl (85-98); Mean Platelet Volume 9.7 fL (7.4-10.4); Monocytes # 0.6 10^3/uL (0.2-0.9); Monocytes % 5.3 %; Neutrophils # 8.58 10^3/uL (1.8-7.7); Neutrophils % 73.9 %; Nucleated Red Blood Cells % 0 %; Platelet Count 301 10^3/cmm (157-399); Red Blood Count 4.94 10^6/uL (3.85-5.65); Red Cell Distribution Width 14.1 % (12.1-15.1); White Blood Count 11.61 10^3/uL (3.29-11.43)
[2023-11-21 13:42] LABS: HCG, Serum Qual Negative (Negative)
[2023-11-21] MEDS: morphine 4 mg/mL SDV 1 mL IVP (13:51)
[2023-11-21] MEDS: ondansetron 2 mg/ML SDV 2 mL 4 MG IVP (13:52)
[2023-11-21 13:58] LABS: Alanine Aminotransferase 17 U/L (0-33); Albumin Level 4.1 g/dL (3.5-5.2); Alkaline Phosphatase 79 U/L (35-105); Aspartate Amino Transferase 15 U/L (0-32); Blood Urea Nitrogen 12 mg/dL (6-20); Calcium 9.6 mg/dL (8.5-10.5); Carbon Dioxide 26 mmol/L (22-29); Chloride 100 mmol/L (98-107); Globulin 2.9 g/dL (1.3-4.6); Glucose 90 mg/dL (65-115); Lipase 18 U/L (13-60); Osmolality Calculated 283 mOsm/kg (285-295); Sodium 137 mmol/L (136-145); Total Bilirubin 0.2 mg/dL (0.15-1.2)
[2023-11-21 15:45] LABS: Add Urine Microscopic? NO; Charge for UA Resulting for Rev
[2023-11-21 15:49] LABS: Bilirubin Urine Neg (Negative); Blood Urine Neg (Negative); Glucose Urine UA Norm (Normal); Ketones Urine Negative (Negative); Leukocyte Esterase Urine Negative (Negative); Nitrate Urine Negative (Negative); Protein Urine Neg (Negative); Specific Gravity, Urine 1.005 (1.005-1.030); Urine Appearance Clear (CLEAR); Urine Color Yellow (Yellow); Urobilinogen Urine Neg (Negative); pH Urine 5 (5-7)
== END 2023-11-21 16:11 | disposition home or self-care (01) ==
PROVIDERS: Emergency Provider Emergency Medicine; PCP Clinical Nurse Specialist Adult Health
DX: R10.84 Generalized abdominal pain (principal); E11.9 Type 2 diabetes mellitus without complications
CPT/HCPCS: 36415; 74177; 80053; 81003; 83690; 84703; 85025; 96374; 96375; 99285; J2270; J2405; Q9967

== ENCOUNTER 2024-01-02 18:16 | Emergency (ER) | payer OTHER, SELFPAY ==
--- NOTE | 2024-01-02 18:35 | W.ED.GENADLT ---
HPI - General Adult General: Chief complaint: General Medical Stated complaint: sore throat , cough, left ear issues Time Seen by Provider: 01/02/24 18:34 History of Present Illness: 28-year-old female presents emergency department with complaints of a sore throat for the past 2 to 3 weeks. She states she is also had a nonproductive cough that seems to have gotten worse. She states her throat is sore after having so much coughing. She states she also had an episode of posttussive emesis. She states her current sore throat pain is a 4 out of 10 and is scratchy. She states she also has left ear pain. She denies nausea, she denies fevers chills or night sweats. She denies chest pain or shortness of breath. Review of Systems General: Reports: 10 or more systems reviewed and unremarkable except in HPI and below ENMT: Reports: throat pain and ear or mastoid pain Resp: Reports: non-productive cough [facility] ED PFSH: Medical History Trauma and stressor-related disorder Type 2 diabetes mellitus without complications diet controlled Moderate episode of recurrent major depressive disorder Generalized anxiety disorder Pelvic pain Morbid obesity Fatty liver Surgical History No pertinent past surgical history Family History Other Cancer Diabetes Hypertension Thyroid disease Social History Smoking and tobacco/nicotine status: never used tobacco/nicotine Second hand smoke exposure: No Alcohol intake: never Substance/Drug Use: never Current occupation: [employer] Physical Exam Narrative: EXAM NARRATIVE: General: Alert, no acute distress. Skin: Warm, dry, Intact. Head: Normocephalic, atraumatic. Neck: Supple, trachea midline. Eye: Extraocular movements are intact. PERRLA Ears, nose, mouth and throat: mucosa moist. Cardiovascular: Regular, Normal peripheral perfusion. Respiratory: Lungs are clear to auscultation, respirations are non-labored, breath sounds are equal, Symmetrical chest wall expansion. Gastrointestinal: Soft, Nontender, Non distended, Normal bowel sounds. Musculoskeletal: Normal ROM, no deformity. Neurological: Alert and oriented, No focal neurological deficit observed. Psychiatric: Cooperative, appropriate mood & affect. Course Vital Signs: Vital signs: Vital Signs Temperature 98.2 F 01/02/24 18:45 Pulse Rate 83 01/02/24 19:54 Respiratory Rate 16 01/02/24 18:45 Blood Pressure 107/77 01/02/24 19:54 Pulse Oximetry 100 01/02/24 19:54 Oxygen Delivery Me thod Room Air 01/02/24 18:49 MDM - General Adult Medical Decision Making Physical exam completed and documented strep screen negative, urinalysis negative, Differential diagnosis: URI, viral pharyngitis, tonsillitis, Differential Diagnosis URI, viral pharyngitis, tonsillitis, Medical Records I reviewed the patient's medical records. Lab Data I reviewed the patient's lab results. Laboratory Results HCG, Qual Negative (Negative) 01/02/24 19:01 Urine Color Yellow (Yellow) 01/02/24 19:01 Urine Appearance Clear (CLEAR) 01/02/24 19:01 Urine pH 5 (5-7) 01/02/24 19:01 Ur Specific [place] 1.020 (1.005-1.030) 01/02/24 19:01 Urine Protein Neg (Negative) 01/02/24 19:01 Urine Glucose (UA) Norm (Normal) 01/02/24 19:01 Urine Ketones Negative (Negative) 01/02/24 19:01 Urine Blood 3+ (Negative) H 01/02/24 19:01 Urine Nitrate Negative (Negative) 01/02/24 19:01 Urine Bilirubin Neg (Negative) 01/02/24 19:01 Urine Urobilinogen Norm mg/dL (Negative) 01/02/24 19:01 Ur Leukocyte Esterase Negative (Negative) 01/02/24 19:01 Urine RBC 40-50 /hpf (0-2) H 01/02/24 19:01 Urine WBC 5-10 /hpf (0-5) H 01/02/24 19:01 Ur Squamous Epith Cells 10-15 /hpf (0-5) H 01/02/24 19:01 Amorphous Sediment Not Reportable 01/02/24 19:01 Urine Bacteria 1+ /hpf (NONE) H 01/02/24 19:01 Group A Strep Rapid Negative (Negative) 01/02/24 18:55 No radiology studies performed this visit Discharge Plan Discharge Patient Disposition: Home Clinical Impression: Acute viral pharyngitis, Viral upper respiratory illness Condition: Stable Prescriptions: No Action fluticasone propionate [Flonase Allergy Relief] 50 mcg/actuation spray,suspension 2 spray intranasal DAILY Qty: 16 0RF Rx Instructions: administer into each nostril cetirizine [Zyrtec] 10 mg tablet 10 mg PO DAILY Qty: 30 0RF amoxicillin 500 mg tablet 1,000 mg PO BID 10 Days Qty: 40 0RF polyethylene glycol 3350 [Miralax] 17 gram/dose powder 4 g PO DAILY Qty: 119 0RF duloxetine 30 mg capsule,delayed release(DR/EC) 30 mg PO QAM Qty: 90 3RF norgestimate-ethinyl estradiol 0.18/0.215/0.25 mg-35 mcg (28) tablet 1 tab PO QAM ibuprofen 800 mg tablet 800 mg PO Q8H PRN (Reason: Pain) albuterol sulfate 90 mcg/actuation HFA aerosol inhaler 2 puff inhalation Q4H PRN (Reason: Shortness Of Breath) Vitamin D3 125 mcg (5,000 unit) Tablet 125 mcg PO QAM Discharge Orders: Discharge ED (Routine); Ordered 01/02/24 Ordered By: Joe Bach Referrals: Harry Aguilar NP [Primary Care Provider] - Discharge Diet: Usual diet Discharge Activity: Resume usual activity Patient Instructions: Opioid Safety, Pain Management Activity Restrictions/Additional Instructions: Activity Restrictions/Additional Instructions: Thank you for choosing [facility] for your healthcare needs today. Please realize that you were seen in the Emergency Department and that we are providing you with an emergency medical screening exam and this may not be a complete and all inclusive of all the testing and or medical work-up that you may need to determine your ailment or severity of your illness. It is very important that you follow-up as instructed with your Primary care provider or Specialist for additional evaluation and to discuss your medical treatment plan. You may return to the Emergency Department should you have concerns or if your condition changes or worsens in any way. Coding Level of Care Code ED Regional Operations Director for Ashley Mooney
[2024-01-02 18:45] VITALS: BP 136/80; PULSE 91; RESP 16; TEMP 36.8; O2SAT 100
[2024-01-02 18:49] VITALS: BP 143/118; PULSE 92; O2SAT 93
[2024-01-02 19:11] LABS: Rapid Strep A Test Negative (Negative)
[2024-01-02 19:14] LABS: HCG Qualitative Urine. Negative (Negative)
[2024-01-02 19:20] LABS: Urine Appearance Clear (CLEAR); Urine Color Yellow (Yellow); pH Urine 5 (5-7)
[2024-01-02 19:21] LABS: Add Urine Culture? No; Add Urine Microscopic? YES; Bacteria Urine 1+ /hpf; Bilirubin Urine Neg (Negative); Blood Urine 3+ (Negative); Glucose Urine UA Norm (Normal); Ketones Urine Negative (Negative); Leukocyte Esterase Urine Negative (Negative); Nitrate Urine Negative (Negative); Protein Urine Neg (Negative); RBC Urine 40-50 /hpf (0-2); Urobilinogen Urine Norm (Negative)
[2024-01-02 19:54] VITALS: BP 107/77; PULSE 83; O2SAT 100
== END 2024-01-02 19:55 | disposition home or self-care (01) ==
PROVIDERS: Emergency Provider Internal Medicine; PCP Clinical Nurse Specialist Adult Health
DX: J02.8 Acute pharyngitis due to other specified organisms (principal); E11.9 Type 2 diabetes mellitus without complications
CPT/HCPCS: 81001; 81025; 87081; 87880; 99283

== ENCOUNTER 2024-03-13 10:32 | Outpatient (CLI) | payer OTHER, SELFPAY ==
[2024-03-13 11:05] LABS: Basophils # 0.1 10^3/uL (0.0-0.1); Basophils % 0.6 %; Eosinophils # 0.1 10^3/uL (0.0-0.8); Eosinophils % 1.8 %; Hematocrit 42.8 % (36-47); Lymphocytes # 2.1 10^3/uL (0.8-4.8); Lymphocytes % 26.9 %; Mean Corpuscular HGB Conc 31.1 g/dL (30-55); Mean Corpuscular Hemoglobin 25.6 pg (27-33); Mean Corpuscular Volume 82.3 fl (85-98); Mean Platelet Volume 9.8 fL (7.4-10.4); Monocytes # 0.5 10^3/uL (0.2-0.9); Monocytes % 6.9 %; Neutrophils # 4.99 10^3/uL (1.8-7.7); Neutrophils % 63.5 %; Nucleated Red Blood Cells % 0 %; Platelet Count 320 10^3/cmm (157-399); Red Cell Distribution Width 14.6 % (12.1-15.1); White Blood Count 7.85 10^3/uL (3.29-11.43)
[2024-03-13 11:30] LABS: Alanine Aminotransferase 21 U/L (0-33); Albumin Level 4.3 g/dL (3.5-5.2); Alkaline Phosphatase 75 U/L (35-105); Anion Gap 15.7 (5-19); Aspartate Amino Transferase 15 U/L (0-32); Blood Urea Nitrogen 12 mg/dL (6-20); Calcium 9.3 mg/dL (8.5-10.5); Carbon Dioxide 25 mmol/L (22-29); Chloride 102 mmol/L (98-107); Globulin 3.2 g/dL (1.3-4.6); Glomerular Filtration Rate 120.8 mL/min (90-130); Glucose 103 mg/dL (65-115); Osmolality Calculated 288 mOsm/kg (285-295); Potassium 3.7 mmol/L (3.5-5.1); Sodium 139 mmol/L (136-145); Total Bilirubin 0.4 mg/dL (0.15-1.2); Total Protein 7.5 g/dL (6.6-8.7)
[2024-03-13 11:46] LABS: 25 Hydroxy Vitamin D 60 ng/mL (30-100)
== END 2024-03-13 10:33 | disposition home or self-care (01) ==
LOC: LAB 10:34
PROVIDERS: PCP Clinical Nurse Specialist Adult Health; Visit Provider Clinical Nurse Specialist Adult Health
DX: E61.1 Iron deficiency (principal); E66.01 Morbid (severe) obesity due to excess calories; E11.9 Type 2 diabetes mellitus without complications; F33.1 Major depressive disorder, recurrent, moderate; F41.1 Generalized anxiety disorder
CPT/HCPCS: 36415; 80053; 82306; 85025

== ENCOUNTER → 2024-03-16 11:12 | Outpatient (BNVA) | payer OTHER, SELFPAY | PROVIDERS: PCP Clinical Nurse Specialist Adult Health; Visit Provider Clinical Nurse Specialist Adult Health | DX: Z91.89 Other specified personal risk factors, not elsewhere classified (principal) | CPT/HCPCS: 86705; 86706; 86709; 86803; 87340; 87491; 87529; 87591; 87806 ==

== ENCOUNTER → 2024-03-22 07:28 | Outpatient (BNVA) | payer OTHER, SELFPAY | PROVIDERS: PCP Clinical Nurse Specialist Adult Health | DX: M25.561 Pain in right knee (principal) | CPT/HCPCS: 73562 ==

== ENCOUNTER → 2025-01-07 13:22 | Outpatient (BNVA) | payer SELFPAY | PROVIDERS: PCP Clinical Nurse Specialist Adult Health; Visit Provider Nurse Practitioner | DX: R11.10 Vomiting, unspecified (principal) | CPT/HCPCS: 87400 ==